=== PATIENT | male | born 1940 | race Caucasian/White ===

== ENCOUNTER 2022-11-28 13:00 | Outpatient (RCR) | payer MEDICARE, OTHER, SELFPAY ==
[2022-11-07 08:22] VITALS: BP 117/75; PULSE 89; RESP 18; TEMP 35.7; BMI 33.9
--- NOTE | 2022-11-07 10:34 | PCM.WC.HP ---
History of Present Illness Date of Service: 11/07/22 Chief Complaint: Traumatic wounds of the right lower extremity History of Wound: This is an 82-year-old male who was in his normal state of health until October 13, 2022. At that time, he tripped on a step stool, experiencing a fall. As result of his fall, the patient sought medical attention in the emergency department at an [facility]. He was diagnosed with a hairline left radial wrist fracture, and was placed in a volar splint. He was found to have an open wound of the right pretibial area, and a large laceration on the right lateral calf. Laceration on the right lateral calf was sutured closed with 9 sutures. Sutures removed on October 26, 2022, following which the laceration dehisced. The patient presented with an open wound on the right pretibial surface and on the right lateral calf. It is noted that the patient has been treated with a course of oral doxycycline. He has been using Bactroban topically to each of the wounds. He suffers from chronic swelling and edema in his lower extremities. He has profound hyperpigmentation and lipodermatosclerosis in the gaiter areas bilaterally. He sleeps in a chair, and is not very active. He spends a great deal of each day idle and sitting. FORMERLY [facility], [facility] Medical History Atrial fibrillation Edema of both legs Fracture of left wrist History of prostate cancer Hyperlipidemia Hyperpigmentation Hypertension Laceration of right leg excluding thigh Leg wound, right Lipodermatosclerosis of both lower extremities Obesity (BMI 30.0-34.9) Swelling of both lower extremities Wound dehiscence Home Medications atorvastatin 40 mg tablet 40 mg PO DAILY 11/07/22 [History Last Taken Unknown] cholecalciferol (vitamin D3) 10 mcg (400 unit) capsule (Vitamin D3) 20 mcg PO DAILY 11/07/22 [History Last Taken Unknown] etodolac 400 mg tablet 400 mg PO Q8H PRN Inflammation 11/07/22 [History Last Taken Unknown] furosemide 40 mg tablet 40 mg PO DAILY 11/07/22 [History Last Taken Unknown] leucovorin calcium 15 mg tablet 15 mg PO QWEEK 11/07/22 [History Last Taken Unknown] metoprolol succinate 50 mg tablet,extended release 24 hr (Toprol XL) 75 mg PO DAILY 11/07/22 [History Last Taken Unknown] prednisone 10 mg tablet 10 mg PO PRN PRN poison shavon 11/07/22 [History Last Taken Unknown] triamcinolone 0.1 % topical ointment and dimethicone 5 % topical cream 0.1 ea topical 11/07/22 [History Last Taken Unknown] warfarin 7.5 mg tablet 7.5 mg PO DAILY 11/07/22 [History Last Taken Unknown] Allergy/AdvReac Type Severity Reaction Status Date / Time Sulfa (Sulfonamide Allergy Swelling Verified 11/07/22 08:47 Antibiotics) Social History Smoking Status: Never smoker Vital Signs Vital Signs Vital Signs: 11/07/22 08:22 Temperature 96.2 F L Temperature Source Temporal Pulse Rate 89 Respiratory Rate 18 Blood Pressure 117/75 Blood Pressure Mean 89 Blood Pressure Source Monitor Blood Pressure Position Sitting Blood Pressure Location Right Arm Oxygen Delivery Method Room Air Weight Weight: 250 lb Body Mass Index (BMI) 33.9 Physical Exam Const alert, oriented x3, no apparent distress and well nourished Constitutional Narrative: The patient is mildly obese. General Appearance: cooperative, comfortable, well kempt and well developed Orientation / Consciousness: awake, oriented to person, oriented to place and oriented to time HEENT normocephalic and head/scalp atraumatic Head and Scalp: normal to inspection, normocephalic and atraumatic Face and Sinus: normal facial exam External Ear: external ears normal Eyes PERRL and EOMs intact bilaterally General Eye: normal appearance of both eyes Neck full ROM Resp normal respiratory effort, normal air movement, no retractions and no use of accessory muscles Effort and Inspection: able to speak in complete sentences Extremity no calf tenderness General Extremity: Negative for clubbing or cyanosis Skin Wound Narrative: Moderate swelling and edema are noted in the patient's lower extremities bilaterally. Severe, pronounced lipodermatosclerosis is noted bilaterally in the gaiter areas. An open wound is noted on the right pretibial area. A dehiscent laceration is noted on the right lateral calf. At each site, there is a moderate amount of bioburden and nonviable tissue. There is no obvious sign of infection or cellulitis. Dimensions of each wound are noted elsewhere. Neuro oriented x3, CN's II-XII intact bilaterally, moves all extremities and no focal motor deficits Sensorium / Orientation: awake, alert, oriented to person, oriented to place and oriented to time Psych Appearance: grossly normal and appropriate Attitude: calm Activity / Motor Behavior: appropriate eye contact Speech: normal speech Mood & Affect: euthymic mood Thought Process: normal thought process Thought Content: normal thought content Attention / Concentration: attention grossly intact Debridement Note Debridement Note Wound debrided: Pretibial area, right lower extremity Laterality: Right Type of Debridement: Excisional debridement Anesthesia Used: 5% Lidocaine Gel Depth: Down to and including healthy tissue and in the subcutaneous layer Percentage of wound debrided: 100 Instrument Used: 5mm curette Tissue Removed: Bioburden and nonviable tissue Severity: Fat Layer Exposed Amount of bleeding with debridement: Mild Bleeding Controlled with: Compression and gauze Patient tolerated procedure: Patient tolerated procedure well Post-Debridement Measurements and Additional Note: Post-Debridement Measurements/Treatment - Nurse 1 - General Ulcer Assessment Start: 11/07/22 08:21 Freq: Status: Active Protocol: NAS Activity Type Activity Date Activity User E-sign Co-sign Detail Recorded Client Recorded Date Recorded By Document 11/07/22 08:22 MW [id number] 11/07/22 08:30 MW 11/07/22 08:22 - Today's Visit Information Type of service Initial Visit Arrival Mode Ambulatory Transfer Assistance None Accompanied by Patient Identification Verified (Name & Yes ) Patient Requires Transmission-Based No Precautions Safety Precautions NA Height and Weight Height 6 ft Weight 250 lb Weight in Pounds 250.0 lbs Body Mass Index (BMI) 33.9 BMI Classification Obese BSA - Woo 2.34 Vital Signs Temperature (97.8 F-99.1 F) 96.2 F L Temperature Source Temporal Pulse Rate (60-100) 89 Pulse Location Monitor Respiratory Rate (12-18) 18 Respiratory rate source Observation Oxygen Delivery Method Room Air Blood Pressure (90/60-120/80) 117/75 Blood Pressure Mean 89 Source Monitor Position Sitting Blood Pressure Location Right Arm History Since Last Visit- (Skip if this is Patient's initial visit) Left Footwear Regular Shoe Right Footwear Regular Shoe Pain Scale: 0-10 Numeric Is Patient Pain Free? Yes Lower Extremity Assessment/ Foot Assessment/ Toe Nail Assessment Right -Posterior Tibial Palpable No -Posterior Tibial Doppler Monophasic -Dorsalis Pedis Palpable Yes -Dorsalis Pedis Doppler Monophasic -Extremity Color Hemosiderin -Hair Growth on Legs No -Hair Growth on Toes No -Temperature of Extremity Warm -Capillary Refill Less than 3 Seconds -Dependent Rubor No -Blanched when Elevated No -Lipodermatosclerosis No -Other Deformity No -Prior Foot Ulcer No -Charcot Joint No -Prior Amputation No -Thick No -Discolored No -Deformed No -Improper Length & Hygeine Yes Left -Polpliteal Pulses Palpable No -Posterior Tibial Palpable No -Posterior Tibial Doppler Monophasic -Dorsalis Pedis Palpable Yes -Dorsalis Pedis Doppler Monophasic -Extremity Color Hemosiderin -Hair Growth on Legs No -Hair Growth on Toes No -Temperature of Extremity Warm -Capillary Refill Less than 3 Seconds -Dependent Rubor No -Blanched when Elevated No -Lipodermatosclerosis No -Other Deformity No -Prior Foot Ulcer No -Charcot Joint No -Prior Amputation No -Thick No -Discolored No -Deformed No -Improper Length & Hygeine Yes Neuropathy Assessment Feet - Top Side and Bottom <Entered> (a) Communication Assessment Preferred language French 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 Able to Read Yes Able to Write Yes Communication Tools None Caregiver Communication Skills No Impairment Impairment Right Hearing Abillity Normal Left Hearing Abillity Normal Visual Assistive Devices Glasses Teaching Assessment Preferences Verbal,Written, Audio/Visual, Demonstration Barriers to Learning None Readiness To Learn Excellent Willingness to Engage in Self Management High Activies Readiness to Engage in Self Management High Activities Anxiety Level Calm Cooperation Cooperative Perception Coherent Interest in Health Problem Asks Questions Education Importance Acknowledges Need Does Patient Smoke tobacco or other Yes substances Smoking Status Never smoker Is Patient Diabetic No Functional Assessment Recent Decline in Ability to Perform Denies Any Declines Assistive Device With Patient No Culture/Yarsani/Martial Arts Instructor Cultural/Yarsani Needs that may affect No Treatment Plan Would you allow our hospital hat and cap drying room attendant to No meet you for the purpose of spiritual/ emotional support? Martial Arts Instructor to contact place of cheondoism No (a) 1 - + WC - Nurse 1 - General Ulcer Measurement Start: 11/07/22 08:21 Freq: Status: Active Protocol: Activity Type Activity Date Activity User E-sign Co-sign Detail Recorded Client Recorded Date Recorded By Document 11/07/22 08:22 MW [id number] 11/07/22 08:30 MW 11/07/22 08:22 Wound Center Nurse 1 #2 right lateral LE -Combined with other wound No -Current Size (cm) - Length 7.8 -Current Size (cm) - Width 0.7 -Current Size (cm) - Depth 0.2 -Total Square Cm 5.46 -Date of Last Picture (Recall this 11/07/22 field) -Photo Taken Yes -Epithelialization None Present -Tunneling No -Undermining/Tunneling No -Circular Undermining No -Exudate Amt Medium -Exudate Type Serosanguineous -Wound Margin Flat & Intact -Granulation Amt None Present (0 %) -Granulation Quality N/A -Slough/Fibrin Yes -Necrosis Amt Large (67-100%) -Necrotic Tissue Type Adherent Slough -Structure Exposed N/A -Texture (Yelena-wound Skin Appearance) Assessed, Localized Edema -Moisture (Yelena-wound Skin Appearance) No Abnormality, Assessed -Color (Yelena-wound Skin Appearance) Assessed, Hemosiderin Staining -Temperature (Yelena-wound Skin No Abnormality Appearance) (Pt Warm) -Tenderness on Palpation (Yelena-wound No Skin Appearance) -Ulcer Cleansing Rinsed/ Irrigated with Saline -Foul Odor after Cleansing No -Anesthetic Used 5% Lidocaine Gel #1 right wheeler -Combined with other wound No -Current Size (cm) - Length 2.8 -Current Size (cm) - Width 0.9 -Current Size (cm) - Depth 0.2 -Total Square Cm 2.52 -Date of Last Picture (Recall this 11/07/22 field) -Photo Taken Yes -Epithelialization None Present -Tunneling No -Undermining/Tunneling No -Circular Undermining No -Exudate Amt Medium -Exudate Type Serosanguineous -Wound Margin Flat & Intact -Granulation Amt Small (1-33%) -Granulation Quality [place] -Slough/Fibrin Yes -Necrosis Amt Large (67-100%) -Necrotic Tissue Type Adherent Slough -Structure Exposed N/A -Texture (Yelean-wound Skin Appearance) Assessed, Localized Edema -Moisture (Yelena-wound Skin Appearance) No Abnormality, Assessed -Color (Yelena-wound Skin Appearance) Assessed, Hemosiderin Staining -Temperature (Yelena-wound Skin No Abnormality Appearance) (Pt Warm) -Tenderness on Palpation (Yelena-wound No Skin Appearance) -Ulcer Cleansing Rinsed/ Irrigated with Saline -Foul Odor after Cleansing No -Anesthetic Used 5% Lidocaine Gel Lower Limb Edema Present Yes Right Calf (cm) 50.2 Right Ankle (cm) 29.2 Left Calf (cm) 44.7 Left Ankle (cm) 28.1 WC - Nurse 3 - General Ulcer D/C NN Start: 11/07/22 08:21 Freq: Status: Active Protocol: Activity Type Activity Date Activity User E-sign Co-sign Detail Recorded Client Recorded Date Recorded By Document 11/07/22 09:22 MW [id number] 11/07/22 09:24 MW 11/07/22 09:22 Wound Care Center Nurse 3 #2 right lateral LE -Ulcer Cleansing Rinsed/ Irrigated with Saline -Foul Odor after Cleansing No -Negative Pressure Wound Therapy N/A -Other Dressing hydrogel -Primary Dressing Covered/Secured with Dry Gauze & Roll Gauze, Secured with Tape -Other Covering ABD #1 right wheeler -Ulcer Cleansing Rinsed/ Irrigated with Saline -Foul Odor after Cleansing No -Negative Pressure Wound Therapy N/A -Other Dressing hydrogel -Primary Dressing Covered/Secured with Dry Gauze & Roll Gauze, Secured with Tape -Other Covering ABD Right -Lotion applied to leg before No compression wrap -Tubular Bandage Single Layer -Size of Tubigrip Used Size E -Size E ($) 2 -Stockings Yes Left -Lotion applied to leg before No compression wrap -Tubular Bandage Single Layer -Size of Tubigrip Used Size E -Size E ($) 2 Pain Scale: 0-10 Numeric Is Patient Pain Free? Yes Teaching: Wound Center Compression Wraps & Stockings -Person Taught Patient,Family -Teaching Method Discussion, Demonstration -Response to teaching Verbalize understanding Dressing Your Wound -Person Taught Patient,Family -Teaching Method Discussion, Demonstration -Response to teaching Verbalize understanding WC - Visit Discharge Discharge Condition Stable Ambulatory Status Ambulatory Transportation Private Auto Accompanied by Medication Reconcilliation completed & No provided to patient/care provider Clinical Summary of Care Provided Yes Additional Wound Wound debrided: Right lateral calf, dehiscent laceration Laterality: Right Type of Debridement: Excisional debridement Anesthesia Used: 5% Lidocaine Gel Depth: Down to and including healthy tissue and in the subcutaneous layer Percentage of wound debrided: 100 Instrument Used: 5mm curette Tissue Removed: Bioburden and nonviable tissue Severity: Fat Layer Exposed Amount of bleeding with debridement: Mild Bleeding Controlled with: Compression and gauze Patient tolerated procedure: Patient tolerated procedure well Assessment/Plan Assessment/Plan (1) Leg wound, right: CODE(S): S81.801A - Unspecified open wound, right lower leg, initial encounter QUALIFIERS: Encounter type: initial encounter Qualified Code(s): S81.801A - Unspecified open wound, right lower leg, initial encounter (2) Laceration of right leg excluding thigh: CODE(S): S81.811A - Laceration without foreign body, right lower leg, initial encounter QUALIFIERS: Encounter type: initial encounter Qualified Code(s): S81.811A - Laceration without foreign body, right lower leg, initial encounter (3) Wound dehiscence: CODE(S): T81.30XA - Disruption of wound, unspecified, initial encounter (4) History of prostate cancer: CODE(S): Z85.46 - Personal history of malignant neoplasm of prostate (5) Hypertension: CODE(S): I10 - Essential (primary) hypertension (6) Hyperlipidemia: CODE(S): E78.5 - Hyperlipidemia, unspecified (7) Atrial fibrillation: CODE(S): I48.91 - Unspecified atrial fibrillation (8) Hyperpigmentation: CODE(S): L81.9 - Disorder of pigmentation, unspecified (9) Lipodermatosclerosis of both lower extremities: CODE(S): I83.11 - Varicose veins of right lower extremity with inflammation; I83.12 - Varicose veins of left lower extremity with inflammation (10) Swelling of both lower extremities: CODE(S): M79.89 - Other specified soft tissue disorders (11) Edema of both legs: CODE(S): R60.0 - Localized edema (12) Obesity (BMI 30.0-34.9): CODE(S): E66.9 - Obesity, unspecified (13) Fracture of left wrist: CODE(S): S62.102A - Fracture of unspecified carpal bone, left wrist, initial encounter for closed fracture PLAN: Plan This is an 82-year-old male who presents with traumatic wounds which occurred on October 13, 2022. He was initially treated in an emergency room setting. Suture closure was performed relative to a laceration on the right lateral calf. Following removal of his sutures, approximately 2 weeks following his injury, the laceration dehisced. The patient presents with 2 wounds in the right lower extremity related to his recent traumatic injury. The patient is seen to have chronic swelling and edema in both lower extremities, with hyperpigmentation and lipodermatosclerosis in the gaiter areas bilaterally. He is not very active, and sleeps in a chair at night. A lengthy discussion has been undertaken with the patient and his . Leg elevation has been encouraged, and a lengthy discussion has been undertaken as to the means by which this can be accomplished. The patient is to elevate his legs to heart level, or higher, is much as possible. He has been encouraged to sleep on a flat surface at night. He has been encouraged to elevate his lower extremities is much as possible during daytime hours. Prolonged idle sitting has been discouraged. Activity has been encouraged, though the degree to which the patient can enhance his activity is question. Weight loss has been recommended. We are to implement compression to the lower extremities initially by means of Tubigrip's, equivalent to 20 to 30 mmHg compression. The patient's is to assist him in donning the compression garments. They have had difficulty in the past in donning graduated compression stockings. Long-term management may entail the use of CircAid Velcro compression garments. Optimizing the patient's nutritional intake has been encouraged. We are to implement the use of collagenase Santyl topically, which will be applied by the patient or his on a daily basis. The means by which this is to be applied have been demonstrated. A prescription and coupon for collagenase Santyl has been provided. A noninvasive lower extremity arterial study is to be obtained to assess the patient's lower extremity arterial status. The patient is to return in 1 week for reassessment. Long-term control of the patient's lower extremity swelling, edema, and lipodermatosclerosis has been emphasized. Total time: 55 minutes
--- NOTE | 2022-11-07 10:51 | ART_ITS ---
Reason For Study: RLE Wound Procedure A bilateral lower extremity continuous wave Doppler with analog waveform analysis,segmental pressures,and ankle brachial indexes without exercise. Left Segmental Pressures Left brachial= 113mmHg. Left posterior tibial artery = 139mmHg. Left dorsalis pedis artery = 136mmHg. Left digit = 112 mmHg. The left posterior tibial artery waveforms are triphasic. The left dorsalis pedis waveforms are triphasic. Right Segmental Pressures Right brachial= 121mmHg. Right posterior tibial artery = 129mmHg. Right dorsalis pedis artery = 124mmHg. Right digit = 92 mmHg. The right posterior tibial artery waveforms are triphasic. The right dorsalis pedis waveforms are triphasic. Indices The right ankle brachial index by the posterior tibial artery is 1.07. The right ankle brachial index by the dorsalis pedis is 1.02. The right digital-brachial index is 0.76. The left ankle brachial index by the posterior tibial artery is 1.15. The left ankle brachial index by the dorsalis pedis is 1.12. The left digital-brachial index is 0.93. VL/Lower Ext Art Exam w/o Exercis Interpretation Summary Triphasic Doppler waveforms are noted at ankle level bilaterally. Pulse-volume recordings appear satisfactory at all levels bilaterally. Resting ankle-brachial indices are norm al bilaterally. Digital-brachial indices are normal bilaterally. There is no evidence of significant arterial occlusive disease in the lower ext remities bilaterally. Ordering Physician: Jai Dennis Referring Physician: Lefty Roca Performed By: Gareth Mathew, RVT
[2022-11-14 08:01] VITALS: BP 135/81; PULSE 83; RESP 18; TEMP 35.9; BMI 33.9
--- NOTE | 2022-11-14 08:57 | PCM.WC.HP ---
History of Present Illness Date of Service: 11/14/22 Chief Complaint: Traumatic wounds of the right lower extremity History of Wound: This is an 82-year-old male who was in his normal state of health until October 13, 2022. At that time, he tripped on a step stool, experiencing a fall. As result of his fall, the patient sought medical attention in the emergency department at an [facility]. He was diagnosed with a hairline left radial wrist fracture, and was placed in a volar splint. He was found to have an open wound of the right pretibial area, and a large laceration on the right lateral calf. Laceration on the right lateral calf was sutured closed with 9 sutures. Sutures removed on October 26, 2022, following which the laceration dehisced. The patient presented with an open wound on the right pretibial surface and on the right lateral calf. It is noted that the patient has been treated with a course of oral doxycycline. He has been using Bactroban topically to each of the wounds. He suffers from chronic swelling and edema in his lower extremities. He has profound hyperpigmentation and lipodermatosclerosis in the gaiter areas bilaterally. He sleeps in a chair, and is not very active. He spends a great deal of each day idle and sitting. [facility] Medical History Atrial fibrillation Edema of both legs Fracture of left wrist History of prostate cancer Hyperlipidemia Hyperpigmentation Hypertension Laceration of right leg excluding thigh Leg wound, right Lipodermatosclerosis of both lower extremities Obesity (BMI 30.0-34.9) Swelling of both lower extremities Wound dehiscence Home Medications atorvastatin 40 mg tablet 40 mg PO DAILY 11/07/22 [History Last Taken Unknown] cholecalciferol (vitamin D3) 10 mcg (400 unit) capsule (Vitamin D3) 20 mcg PO DAILY 11/07/22 [History Last Taken Unknown] etodolac 400 mg tablet 400 mg PO Q8H PRN Inflammation 11/07/22 [History Last Taken Unknown] furosemide 40 mg tablet 40 mg PO DAILY 11/07/22 [History Last Taken Unknown] leucovorin calcium 15 mg tablet 15 mg PO QWEEK 11/07/22 [History Last Taken Unknown] metoprolol succinate 50 mg tablet,extended release 24 hr (Toprol XL) 75 mg PO DAILY 11/07/22 [History Last Taken Unknown] prednisone 10 mg tablet 10 mg PO PRN PRN poison shavon 11/07/22 [History Last Taken Unknown] triamcinolone 0.1 % topical ointment and dimethicone 5 % topical cream 0.1 ea topical 11/07/22 [History Last Taken Unknown] warfarin 7.5 mg tablet 7.5 mg PO DAILY 11/07/22 [History Last Taken Unknown] Allergy/AdvReac Type Severity Reaction Status Date / Time Sulfa (Sulfonamide Allergy Swelling Verified 11/07/22 08:47 Antibiotics) Social History Smoking Status: Never smoker Vital Signs Vital Signs Vital Signs: 11/14/22 08:01 Temperature 96.7 F L Temperature Source Temporal Pulse Rate 83 Respiratory Rate 18 Blood Pressure 135/81 H Blood Pressure Mean 99 Blood Pressure Source Monitor Blood Pressure Position Sitting Blood Pressure Location Right Arm Oxygen Delivery Method Room Air Weight Weight: 250 lb Body Mass Index (BMI) 33.9 Physical Exam Const alert, oriented x3, no apparent distress and well nourished Constitutional Narrative: The patient is mildly obese. General Appearance: cooperative, comfortable, well kempt and well developed Orientation / Consciousness: awake, oriented to person, oriented to place and oriented to time HEENT normocephalic and head/scalp atraumatic Head and Scalp: normal to inspection, normocephalic and atraumatic Face and Sinus: normal facial exam External Ear: external ears normal Eyes PERRL and EOMs intact bilaterally General Eye: normal appearance of both eyes Neck full ROM Resp normal respiratory effort, normal air movement, no retractions and no use of accessory muscles Effort and Inspection: able to speak in complete sentences Extremity no calf tenderness General Extremity: Negative for clubbing or cyanosis Skin Wound Narrative: Moderate swelling and edema are noted in the patient's lower extremities bilaterally. Severe, pronounced lipodermatosclerosis is noted bilaterally in the gaiter areas. An open wound is noted on the right pretibial area. A dehiscent laceration is noted on the right lateral calf. At each site, there is a moderate amount of bioburden and nonviable tissue. There is no obvious sign of infection or cellulitis. Dimensions of each wound are noted elsewhere. There has been little change noted within the last week, though the degree of swelling and edema is somewhat less.. Neuro oriented x3, CN's II-XII intact bilaterally, moves all extremities and no focal motor deficits Sensorium / Orientation: awake, alert, oriented to person, oriented to place and oriented to time Psych Appearance: grossly normal and appropriate Attitude: calm Activity / Motor Behavior: appropriate eye contact Speech: normal speech Mood & Affect: euthymic mood Thought Process: normal thought process Thought Content: normal thought content Attention / Concentration: attention grossly intact Debridement Note Debridement Note Wound debrided: Pretibial area, right lower extremity Laterality: Right Type of Debridement: Excisional debridement Anesthesia Used: 5% Lidocaine Gel Depth: Down to and including healthy tissue and in the subcutaneous layer Percentage of wound debrided: 100 Instrument Used: 5mm curette Tissue Removed: Bioburden and nonviable tissue Severity: Fat Layer Exposed Amount of bleeding with debridement: Mild Bleeding Controlled with: Compression and gauze Patient tolerated procedure: Patient tolerated procedure well Post-Debridement Measurements and Additional Note: Post-Debridement Measurements/Treatment - Nurse 1 - General Ulcer Assessment Start: 11/07/22 08:21 Freq: Status: Active Protocol: NSA Activity Type Activity Date Activity User E-sign Co-sign Detail Recorded Client Recorded Date Recorded By Document 11/07/22 08:22 MW [id number] 11/07/22 08:30 MW Document 11/14/22 08:01 MW [id number] 11/14/22 08:05 MW 11/07/22 11/14/22 08:22 08:01 - Today's Visit Information Type of service Initial Visit Follow-up Visit (Physician/RETAIL ASSISTANT ) Arrival Mode Ambulatory Ambulatory Transfer Assistance None None Accompanied by Patient Identification Verified (Name & Yes Yes ) Patient Requires Transmission-Based No No Precautions Safety Precautions NA NA Height and Weight Height 6 ft Weight 250 lb Weight in Pounds 250.0 lbs Body Mass Index (BMI) 33.9 33.9 BMI Classification Obese Obese BSA - Woo 2.34 Vital Signs Temperature (97.8 F-99.1 F) 96.2 F L 96.7 F L Temperature Source Temporal Temporal Pulse Rate (60-100) 89 83 Pulse Location Monitor Monitor Respiratory Rate (12-18) 18 18 Respiratory rate source Observation Observation Oxygen Delivery Method Room Air Room Air Blood Pressure (90/60-120/80) 117/75 135/81 H Blood Pressure Mean 89 99 Source Monitor Monitor Position Sitting Sitting Blood Pressure Location Right Arm Right Arm History Since Last Visit- (Skip if this is Patient's initial visit) Have you changed medications since your No last visit? Any new allergies or adverse reactions No Had a fall/change in ADL's that may No increase risk of falls Signs or symptoms of abuse and/or No neglect since last visit Have you been in the hospital since your No last visit? Left Footwear Regular Shoe Regular Shoe Right Footwear Regular Shoe Regular Shoe Pain Scale: 0-10 Numeric Is Patient Pain Free? Yes Yes Lower Extremity Assessment/ Foot Assessment/ Toe Nail Assessment Right -Posterior Tibial Palpable No -Posterior Tibial Doppler Monophasic -Dorsalis Pedis Palpable Yes -Dorsalis Pedis Doppler Monophasic -Extremity Color Hemosiderin -Hair Growth on Legs No -Hair Growth on Toes No -Temperature of Extremity Warm -Capillary Refill Less than 3 Seconds -Dependent Rubor No -Blanched when Elevated No -Lipodermatosclerosis No -Other Deformity No -Prior Foot Ulcer No -Charcot Joint No -Prior Amputation No -Thick No -Discolored No -Deformed No -Improper Length & Hygeine Yes Left -Polpliteal Pulses Palpable No -Posterior Tibial Palpable No -Posterior Tibial Doppler Monophasic -Dorsalis Pedis Palpable Yes -Dorsalis Pedis Doppler Monophasic -Extremity Color Hemosiderin -Hair Growth on Legs No -Hair Growth on Toes No -Temperature of Extremity Warm -Capillary Refill Less than 3 Seconds -Dependent Rubor No -Blanched when Elevated No -Lipodermatosclerosis No -Other Deformity No -Prior Foot Ulcer No -Charcot Joint No -Prior Amputation No -Thick No -Discolored No -Deformed No -Improper Length & Hygeine Yes Neuropathy Assessment Feet - Top Side and Bottom <Entered> (a) Communication Assessment Preferred language [place] [employer] Assistant Required No Able to Read Yes Able to Write Yes Communication Tools None Caregiver Communication Skills No Impairment Impairment Right Hearing Abillity Normal Left Hearing Abillity Normal Visual Assistive Devices Glasses Teaching Assessment Preferences Verbal,Written, Audio/Visual, Demonstration Barriers to Learning None Readiness To Learn Excellent Willingness to Engage in Self Management High Activies Readiness to Engage in Self Management High Activities Anxiety Level Calm Cooperation Cooperative Perception Coherent Interest in Health Problem Asks Questions Education Importance Acknowledges Need Does Patient Smoke tobacco or other Yes substances Smoking Status Never smoker Is Patient Diabetic No Functional Assessment Recent Decline in Ability to Perform Denies Any Declines Assistive Device With Patient No Culture/Sikhism/[employer] Cultural/Sikhism Needs that may affect No Treatment Plan Would you allow our hospital seasonal greenery bundler to No meet you for the purpose of spiritual/ emotional support? [employer] to contact place of faith No (a) 1 - + WC - Nurse 1 - General Ulcer Measurement Start: 11/07/22 08:21 Freq: Status: Active Protocol: Activity Type Activity Date Activity User E-sign Co-sign Detail Recorded Client Recorded Date Recorded By Document 11/07/22 08:22 MW [id number] 11/07/22 08:30 MW Document 11/14/22 08:01 MW [id number] 11/14/22 08:05 MW 11/07/22 11/14/22 08:22 08:01 Wound Center Nurse 1 #2 right lateral LE -Combined with other wound No No -Current Size (cm) - Length 7.8 8.3 -Current Size (cm) - Width 0.7 0.5 -Current Size (cm) - Depth 0.2 0.2 -Total Square Cm 5.46 4.15 -Date of Last Picture (Recall this 11/07/22 field) -Photo Taken Yes No -Epithelialization None Present Small 1-33% -Tunneling No No -Undermining/Tunneling No No -Circular Undermining No No -Exudate Amt Medium Small -Exudate Type Serosanguineous Serosanguineous -Wound Margin Flat & Intact Flat & Intact -Granulation Amt None Present (0 Small (1-33%) %) -Granulation Quality N/A [place] -Slough/Fibrin Yes Yes -Necrosis Amt Large (67-100%) Large (67-100%) -Necrotic Tissue Type Adherent Slough Adherent Slough -Structure Exposed N/A -Texture (Yelena-wound Skin Appearance) Assessed, Assessed, Localized Edema Localized Edema ,Scarring -Moisture (Yelena-wound Skin Appearance) No Abnormality, No Abnormality, Assessed Assessed -Color (Yelena-wound Skin Appearance) Assessed, Assessed, Hemosiderin Hemosiderin Staining Staining -Temperature (Yelena-wound Skin No Abnormality No Abnormality Appearance) (Pt Warm) (Pt Warm) -Tenderness on Palpation (Yelena-wound No No Skin Appearance) -Ulcer Cleansing Rinsed/ Rinsed/ Irrigated with Irrigated with Saline Saline -Foul Odor after Cleansing No No -Anesthetic Used 5% Lidocaine 5% Lidocaine Gel Gel #1 right wheeler -Combined with other wound No No -Current Size (cm) - Length 2.8 2.5 -Current Size (cm) - Width 0.9 0.7 -Current Size (cm) - Depth 0.2 0.1 -Total Square Cm 2.52 1.75 -Date of Last Picture (Recall this 11/07/22 field) -Photo Taken Yes No -Epithelialization None Present None Present -Tunneling No No -Undermining/Tunneling No No -Circular Undermining No No -Exudate Amt Medium Small -Exudate Type Serosanguineous Serosanguineous -Wound Margin Flat & Intact Flat & Intact -Granulation Amt Small (1-33%) Small (1-33%) -Granulation Quality [place] -Slough/Fibrin Yes Yes -Necrosis Amt Large (67-100%) Large (67-100%) -Necrotic Tissue Type Adherent Slough Adherent Slough -Structure Exposed N/A N/A -Texture (Yelena-wound Skin Appearance) Assessed, Assessed, Localized Edema Localized Edema ,Scarring -Moisture (Yelena-wound Skin Appearance) No Abnormality, Assessed Assessed -Color (Yelena-wound Skin Appearance) Assessed, Assessed, Hemosiderin Hemosiderin Staining Staining -Temperature (Yelena-wound Skin No Abnormality No Abnormality Appearance) (Pt Warm) (Pt Warm) -Tenderness on Palpation (Yelena-wound No No Skin Appearance) -Ulcer Cleansing Rinsed/ Rinsed/ Irrigated with Irrigated with Saline Saline -Foul Odor after Cleansing No No -Anesthetic Used 5% Lidocaine 5% Lidocaine Gel Gel Lower Limb Edema Present Yes Yes Right Calf (cm) 50.2 48.0 Right Ankle (cm) 29.2 28.5 Left Calf (cm) 44.7 Left Ankle (cm) 28.1 WC - Nurse 2 - General Ulcer CM Notes Start: 11/07/22 08:21 Freq: Status: Active Protocol: Activity Type Activity Date Activity User E-sign Co-sign Detail Recorded Client Recorded Date Recorded By Document 11/07/22 11:58 PL [id number] 11/07/22 12:00 PL 11/07/22 11:58 Wound Center Nurse 2 #2 right lateral LE -Time 08:46 -Correct Patient Yes -Correct Side, Site, Position Yes -Correct Procedure Yes -Procedure Performed Yes -Type of Procedure Debridement -Clinical Debridement Subcutaneous -Tissue Removed Subcutaneous -Post Debridement (cm) - Length 7.8 -Post Debridement (cm) - Width 0.7 -Post Debridement (cm) - Depth 0.2 -Total Square (Post) (cm) 5.46 -Area of Debridement (cm) - Length 7.8 -Area of Debridement (cm) - Width 0.7 -Total Square (Area) (cm) 5.46 -Tunneling No -Undermining/Tunneling No -Circular Undermining No -Wound/Ulcer Outcome Not Healed -Ulcer Cleansing Rinsed/ Irrigated with Saline -Foul Odor after Cleansing No -Bioengineered Tissue No -Bleeding Controlled with NA -Treatment Response Procedure Tolerated Well -Debridement - Subq, 1st 20sq cm No #1 right wheeler -Time 08:46 -Correct Patient Yes -Correct Side, Site, Position Yes -Correct Procedure Yes -Procedure Performed Yes -Type of Procedure Debridement -Clinical Debridement Subcutaneous -Tissue Removed Subcutaneous -Post Debridement (cm) - Length 2.8 -Post Debridement (cm) - Width 0.9 -Post Debridement (cm) - Depth 0.2 -Total Square (Post) (cm) 2.52 -Area of Debridement (cm) - Length 2.8 -Area of Debridement (cm) - Width 0.9 -Total Square (Area) (cm) 2.52 -Tunneling No -Undermining/Tunneling No -Circular Undermining No -Wound/Ulcer Outcome Not Healed -Ulcer Cleansing Rinsed/ Irrigated with Saline -Foul Odor after Cleansing No -Bioengineered Tissue No -Bleeding Controlled with Pressure -Treatment Response Procedure Tolerated Well -Debridement - Subq, 1st 20sq cm Yes Pain Scale: 0-10 Numeric Is Patient Pain Free? Yes WC - Nurse 3 - General Ulcer D/C NN Start: 11/07/22 08:21 Freq: Status: Active Protocol: Activity Type Activity Date Activity User E-sign Co-sign Detail Recorded Client Recorded Date Recorded By Document 11/07/22 09:22 MW [id number] 11/07/22 09:24 MW Document 11/14/22 08:43 MW [id number] 11/14/22 08:45 MW 11/07/22 11/14/22 09:22 08:43 Wound Care Center Nurse 3 #2 right lateral LE -Ulcer Cleansing Rinsed/ Rinsed/ Irrigated with Irrigated with Saline Saline -Foul Odor after Cleansing No -Negative Pressure Wound Therapy N/A -Primary Dressing Applied Hysept ($) -Other Dressing hydrogel -Primary Dressing Covered/Secured with Dry Gauze & Dry Gauze & Roll Gauze, Roll Gauze, Secured with Secured with Tape Tape -Other Covering ABD abd #1 right wheeler -Ulcer Cleansing Rinsed/ Rinsed/ Irrigated with Irrigated with Saline Saline -Foul Odor after Cleansing No No -Negative Pressure Wound Therapy N/A -Other Dressing hydrogel dakins wet to dry -Primary Dressing Covered/Secured with Dry Gauze & Dry Gauze & Roll Gauze, Roll Gauze, Secured with Secured with Tape Tape -Other Covering ABD Right -Lotion applied to leg before No No compression wrap -Tubular Bandage Single Layer Single Layer -Size of Tubigrip Used Size E Size E -Size E ($) 2 1 -Stockings Yes Left -Lotion applied to leg before No No compression wrap -Tubular Bandage Single Layer Single Layer -Size of Tubigrip Used Size E Size E -Size E ($) 2 1 Treatment Response Procedure Tolerated Well Pain Scale: 0-10 Numeric Is Patient Pain Free? Yes Yes Teaching: Wound Center Compression Wraps & Stockings -Person Taught Patient,Family Patient,Family -Teaching Method Discussion, Discussion Demonstration -Response to teaching Verbalize Verbalize understanding understanding Dressing Your Wound -Person Taught Patient,Family -Teaching Method Discussion, Demonstration -Response to teaching Verbalize understanding WC - Visit Discharge Discharge Condition Stable Stable Ambulatory Status Ambulatory Ambulatory Transportation Private Auto Private Auto Accompanied by Medication Reconcilliation completed & No No provided to patient/care provider Clinical Summary of Care Provided Yes Yes Notes: Dressing applied per George Flores RN Additional Wound Wound debrided: Right lateral calf, dehiscent laceration Laterality: Right Type of Debridement: Excisional debridement Anesthesia Used: 5% Lidocaine Gel Depth: Down to and including healthy tissue and in the subcutaneous layer Percentage of wound debrided: 100 Instrument Used: 5mm curette Tissue Removed: Bioburden and nonviable tissue Severity: Fat Layer Exposed Amount of bleeding with debridement: Mild Bleeding Controlled with: Compression and gauze Patient tolerated procedure: Patient tolerated procedure well Assessment/Plan Assessment/Plan (1) Leg wound, right: CODE(S): S81.801A - Unspecified open wound, right lower leg, initial encounter QUALIFIERS: Encounter type: subsequent encounter Qualified Code(s): S81.801D - Unspecified open wound, right lower leg, subsequent encounter (2) Laceration of right leg excluding thigh: CODE(S): S81.811A - Laceration without foreign body, right lower leg, initial encounter QUALIFIERS: Encounter type: subsequent encounter Qualified Code(s): S81.811D - Laceration without foreign body, right lower leg, subsequent encounter (3) Wound dehiscence: CODE(S): T81.30XA - Disruption of wound, unspecified, initial encounter (4) History of prostate cancer: CODE(S): Z85.46 - Personal history of malignant neoplasm of prostate (5) Hypertension: CODE(S): I10 - Essential (primary) hypertension (6) Hyperlipidemia: CODE(S): E78.5 - Hyperlipidemia, unspecified (7) Atrial fibrillation: CODE(S): I48.91 - Unspecified atrial fibrillation (8) Hyperpigmentation: CODE(S): L81.9 - Disorder of pigmentation, unspecified (9) Lipodermatosclerosis of both lower extremities: CODE(S): I83.11 - Varicose veins of right lower extremity with inflammation; I83.12 - Varicose veins of left lower extremity with inflammation (10) Swelling of both lower extremities: CODE(S): M79.89 - Other specified soft tissue disorders (11) Edema of both legs: CODE(S): R60.0 - Localized edema (12) Obesity (BMI 30.0-34.9): CODE(S): E66.9 - Obesity, unspecified (13) Fracture of left wrist: CODE(S): S62.102A - Fracture of unspecified carpal bone, left wrist, initial encounter for closed fracture PLAN: Plan This is an 82-year-old male who presents with traumatic wounds which occurred on October 13, 2022. He was initially treated in an emergency room setting. Suture closure was performed relative to a laceration on the right lateral calf. Following removal of his sutures, approximately 2 weeks following his injury, the laceration dehisced. The patient presented with 2 wounds in the right lower extremity related to his recent traumatic injury. The patient is seen to have chronic swelling and edema in both lower extremities, with hyperpigmentation and lipodermatosclerosis in the gaiter areas bilaterally. He is not very active, and sleeps in a chair at night. A lengthy discussion has been undertaken with the patient and his . Leg elevation has been encouraged, and a lengthy discussion has been undertaken as to the means by which this can be accomplished. The patient is to elevate his legs to heart level, or higher, is much as possible. He has been encouraged to sleep on a flat surface at night. He has been encouraged to elevate his lower extremities is much as possible during daytime hours. Prolonged idle sitting has been discouraged. Activity has been encouraged, though the degree to which the patient can enhance his activity is question. Weight loss has been recommended. We are to implement compression to the lower extremities initially by means of Tubigrip's, equivalent to 20 to 30 mmHg compression. The patient's is to assist him in donning the compression garments. They have had difficulty in the past in donning graduated compression stockings. Long-term management may entail the use of CircAid Velcro compression garments. Optimizing the patient's nutritional intake has been encouraged. Collagenase Santyl was prescribed at the patient's initial visit a week ago, but the patient failed to obtain the product due to its high expense. Even with a coupon, the cost was $300, beyond the patient's ability to purchase. Therefore, the patient and his have been using topical antibiotic ointment. We are to implement the use of Dakin's?moistened gauze. This is to be applied topically on a daily basis. Instructions have been provided to the patient and his as to the appropriate means of application. The means by which this is to be applied have been demonstrated. A noninvasive lower extremity arterial study has been performed, revealing no evidence of significant arterial occlusive disease. The patient is to return in 1 week for reassessment. Long-term control of the patient's lower extremity swelling, edema, and lipodermatosclerosis has been emphasized. Total time: 28 minutes
[2022-11-21 08:28] VITALS: BP 119/79; PULSE 79; RESP 20; TEMP 36.3; BMI 33.9
--- NOTE | 2022-11-21 08:51 | HP.PCM_ITS ---
History of Present Illness Date of Service: 11/21/22 Chief Complaint: Traumatic wounds of the right lower extremity History of Wound: This is an 82-year-old male who was in his normal state of health until October 13, 2022. At that time, he tripped on a step stool, experiencing a fall. As result of his fall, the patient sought medical attention in the emergency department at an [facility]. He was diagnosed with a hairline left radial wrist fracture, and was placed in a volar splint. He was found to have an open wound of the right pretibial area, and a large laceration on the right lateral calf. Laceration on the right lateral calf was sutured closed with 9 sutures. Sutures removed on October 26, 2022, following which the laceration dehisced. The patient presented with an open wound on the right pretibial surface and on the right lateral calf. It is noted that the patient has been treated with a course of oral doxycycline. He has been using Bactroban topically to each of the wounds. He suffers from chronic swelling and edema in his lower extremities. He has profound hyperpigmentation and lipodermatosclerosis in the gaiter areas bilaterally. He sleeps in a chair, and is not very active. He spends a great deal of each day idle and sitting. [facility] Medical History Atrial fibrillation Edema of both legs Fracture of left wrist History of prostate cancer Hyperlipidemia Hyperpigmentation Hypertension Laceration of right leg excluding thigh Leg wound, right Lipodermatosclerosis of both lower extremities Obesity (BMI 30.0-34.9) Swelling of both lower extremities Wound dehiscence Home Medications atorvastatin 40 mg tablet 40 mg PO DAILY 11/07/22 [History Last Taken Unknown] cholecalciferol (vitamin D3) 10 mcg (400 unit) capsule (Vitamin D3) 20 mcg PO DAILY 11/07/22 [History Last Taken Unknown] etodolac 400 mg tablet 400 mg PO Q8H PRN Inflammation 11/07/22 [History Last Taken Unknown] furosemide 40 mg tablet 40 mg PO DAILY 11/07/22 [History Last Taken Unknown] leucovorin calcium 15 mg tablet 15 mg PO QWEEK 11/07/22 [History Last Taken Unknown] metoprolol succinate 50 mg tablet,extended release 24 hr (Toprol XL) 75 mg PO DAILY 11/07/22 [History Last Taken Unknown] prednisone 10 mg tablet 10 mg PO PRN PRN poison shavon 11/07/22 [History Last Taken Unknown] triamcinolone 0.1 % topical ointment and dimethicone 5 % topical cream 0.1 ea topical 11/07/22 [History Last Taken Unknown] warfarin 7.5 mg tablet 7.5 mg PO DAILY 11/07/22 [History Last Taken Unknown] Allergy/AdvReac Type Severity Reaction Status Date / Time Sulfa (Sulfonamide Allergy Swelling Verified 11/07/22 08:47 Antibiotics) Social History Smoking Status: Never smoker Vital Signs Vital Signs Vital Signs: 11/21/22 08:28 Temperature 97.3 F L Temperature Source Temporal Pulse Rate 79 Respiratory Rate 20 H Blood Pressure 119/79 Blood Pressure Mean 92 Blood Pressure Source Monitor Weight Weight: 250 lb Body Mass Index (BMI) 33.9 Physical Exam Const alert, oriented x3, no apparent distress and well nourished Constitutional Narrative: The patient is mildly obese. General Appearance: cooperative, comfortable, well kempt and well developed Orientation / Consciousness: awake, oriented to person, oriented to place and oriented to time HEENT normocephalic and head/scalp atraumatic Head and Scalp: normal to inspection, normocephalic and atraumatic Face and Sinus: normal facial exam External Ear: external ears normal Eyes PERRL and EOMs intact bilaterally General Eye: normal appearance of both eyes Neck full ROM Resp normal respiratory effort, normal air movement, no retractions and no use of accessory muscles Effort and Inspection: able to speak in complete sentences Extremity no calf tenderness General Extremity: Negative for clubbing or cyanosis Skin Wound Narrative: Moderate swelling and edema are noted in the patient's lower extremities bilaterally. Severe, pronounced hyperpigmentation and lipodermatosclerosis is noted bilaterally in the gaiter areas. An open wound is noted on the right pretibial area. A dehiscent laceration is noted on the right lateral calf. At each site, there is a small amount of bioburden and nonviable tissue. There is no obvious sign of infection or cellulitis. Dimensions of each wound are noted elsewhere. The wound and dehiscent laceration appear to be smaller in size as compared to 1 week ago. There is an increase in the amount of pink, healthy granulation tissue at each site. Neuro oriented x3, CN's II-XII intact bilaterally, moves all extremities and no focal motor deficits Sensorium / Orientation: awake, alert, oriented to person, oriented to place and oriented to time Psych Appearance: grossly normal and appropriate Attitude: calm Activity / Motor Behavior: appropriate eye contact Speech: normal speech Mood & Affect: euthymic mood Thought Process: normal thought process Thought Content: normal thought content Attention / Concentration: attention grossly intact Debridement Note Debridement Note Wound debrided: Pretibial area, right lower extremity Laterality: Right Type of Debridement: Excisional debridement Anesthesia Used: 5% Lidocaine Gel Depth: Down to and including healthy tissue and in the subcutaneous layer Percentage of wound debrided: 100 Instrument Used: 5mm curette Tissue Removed: Bioburden and nonviable tissue Severity: Fat Layer Exposed Amount of bleeding with debridement: Mild Bleeding Controlled with: Compression and gauze Patient tolerated procedure: Patient tolerated procedure well Post-Debridement Measurements and Additional Note: Post-Debridement Measurements/Treatment - Nurse 1 - General Ulcer Assessment Start: 11/07/22 08:21 Freq: Status: Active Protocol: DELORES.ALBERTO Activity Type Activity Date Activity User E-sign Co-sign Detail Recorded Client Recorded Date Recorded By Document 11/07/22 08:22 MW [id number] 11/07/22 08:30 MW Document 11/14/22 08:01 MW [id number] 11/14/22 08:05 MW Document 11/21/22 08:28 DL [id number] 11/21/22 08:35 DL 11/07/22 11/14/22 11/21/22 08:22 08:01 08:28 - Today's Visit Information Type of service Initial Visit Follow-up Visit Follow-up Visit (Physician/CHIEF HOSPITAL ADMINISTRATOR (Physician/CHIEF HOSPITAL ADMINISTRATOR ) ) Arrival Mode Ambulatory Ambulatory Ambulatory Transfer Assistance None None None Accompanied by Patient Identification Verified (Name & Yes Yes Yes ) Patient Requires Transmission-Based No No No Precautions Safety Precautions NA NA Height and Weight Height 6 ft Weight 250 lb Weight in Pounds 250.0 lbs Body Mass Index (BMI) 33.9 33.9 33.9 BMI Classification Obese Obese Obese BSA - Woo 2.34 Vital Signs Temperature (97.8 F-99.1 F) 96.2 F L 96.7 F L 97.3 F L Temperature Source Temporal Temporal Temporal Pulse Rate (60-100) 89 83 79 Pulse Location Monitor Monitor Monitor Respiratory Rate (12-18) 18 18 20 H Respiratory rate source Observation Observation Oxygen Delivery Method Room Air Room Air Blood Pressure (90/60-120/80) 117/75 135/81 H 119/79 Blood Pressure Mean 89 99 92 Source Monitor Monitor Monitor Position Sitting Sitting Blood Pressure Location Right Arm Right Arm History Since Last Visit- (Skip if this is Patient's initial visit) Have you changed medications since your No No last visit? Any new allergies or adverse reactions No No Had a fall/change in ADL's that may No No increase risk of falls Signs or symptoms of abuse and/or No No neglect since last visit Have you been in the hospital since your No last visit? Has dressing in place as prescribed Yes Has compression in place as prescribed Yes Has offloadiing in place as prescribed N/A Experienced any changes in pain level or No management Left Footwear Regular Shoe Regular Shoe Right Footwear Regular Shoe Regular Shoe Pain Scale: 0-10 Numeric Is Patient Pain Free? Yes Yes Yes Lower Extremity Assessment/ Foot Assessment/ Toe Nail Assessment Right -Posterior Tibial Palpable No -Posterior Tibial Doppler Monophasic -Dorsalis Pedis Palpable Yes -Dorsalis Pedis Doppler Monophasic -Extremity Color Hemosiderin -Hair Growth on Legs No -Hair Growth on Toes No -Temperature of Extremity Warm -Capillary Refill Less than 3 Seconds -Dependent Rubor No -Blanched when Elevated No -Lipodermatosclerosis No -Other Deformity No -Prior Foot Ulcer No -Charcot Joint No -Prior Amputation No -Thick No -Discolored No -Deformed No -Improper Length & Hygeine Yes Left -Polpliteal Pulses Palpable No -Posterior Tibial Palpable No -Posterior Tibial Doppler Monophasic -Dorsalis Pedis Palpable Yes -Dorsalis Pedis Doppler Monophasic -Extremity Color Hemosiderin -Hair Growth on Legs No -Hair Growth on Toes No -Temperature of Extremity Warm -Capillary Refill Less than 3 Seconds -Dependent Rubor No -Blanched when Elevated No -Lipodermatosclerosis No -Other Deformity No -Prior Foot Ulcer No -Charcot Joint No -Prior Amputation No -Thick No -Discolored No -Deformed No -Improper Length & Hygeine Yes Neuropathy Assessment Feet - Top Side and Bottom <Entered> (a) Communication Assessment Preferred language Welsh Senior Net Software Engineer Required No Able to Read Yes Able to Write Yes Communication Tools None Caregiver Communication Skills No Impairment Impairment Right Hearing Abillity Normal Left Hearing Abillity Normal Visual Assistive Devices Glasses Teaching Assessment Preferences Verbal,Written, Audio/Visual, Demonstration Barriers to Learning None Readiness To Learn Excellent Willingness to Engage in Self Management High Activies Readiness to Engage in Self Management High Activities Anxiety Level Calm Cooperation Cooperative Perception Coherent Interest in Health Problem Asks Questions Education Importance Acknowledges Need Does Patient Smoke tobacco or other Yes substances Smoking Status Never smoker Is Patient Diabetic No Functional Assessment Recent Decline in Ability to Perform Denies Any Declines Assistive Device With Patient No Culture/Mormonism/Senior Tax Accountant Cultural/Mormonism Needs that may affect No Treatment Plan Would you allow our [facility] sports team manager to No meet you for the purpose of spiritual/ emotional support? Senior Tax Accountant to contact place of caodaism No (a) 1 - + WC - Nurse 1 - General Ulcer Measurement Start: 11/07/22 08:21 Freq: Status: Active Protocol: Activity Type Activity Date Activity User E-sign Co-sign Detail Recorded Client Recorded Date Recorded By Document 11/07/22 08:22 MW [id number] 11/07/22 08:30 MW Document 11/14/22 08:01 MW [id number] 11/14/22 08:05 MW Document 11/21/22 08:28 DL [id number] 11/21/22 08:35 DL 11/07/22 11/14/22 11/21/22 08:22 08:01 08:28 Wound Center Nurse 1 #2 right lateral LE -Combined with other wound No No -Current Size (cm) - Length 7.8 8.3 7 -Current Size (cm) - Width 0.7 0.5 0.5 -Current Size (cm) - Depth 0.2 0.2 0.3 -Total Square Cm 5.46 4.15 3.5 -Date of Last Picture (Recall this 11/07/22 field) -Photo Taken Yes No Yes -Epithelialization None Present Small 1-33% -Tunneling No No -Undermining/Tunneling No No -Circular Undermining No No -Exudate Amt Medium Small Small -Exudate Type Serosanguineous Serosanguineous Serosanguineous -Wound Margin Flat & Intact Flat & Intact Distinct, Outline Attached -Granulation Amt None Present (0 Small (1-33%) Large (67-100%) %) -Granulation Quality N/A [place] [address] [place] [address] -Slough/Fibrin Yes Yes -Necrosis Amt Large (67-100%) Large (67-100%) Small (1-33%) -Necrotic Tissue Type Adherent Slough Adherent Slough Adherent Slough -Structure Exposed N/A N/A -Texture (Yelena-wound Skin Appearance) Assessed, Assessed, Scarring Localized Edema Localized Edema ,Scarring -Moisture (Yelena-wound Skin Appearance) No Abnormality, No Abnormality, Dry/Scaly Assessed Assessed -Color (Yelena-wound Skin Appearance) Assessed, Assessed, Hemosiderin Hemosiderin Hemosiderin Staining Staining Staining -Temperature (Yelena-wound Skin No Abnormality No Abnormality No Abnormality Appearance) (Pt Warm) (Pt Warm) (Pt Warm) -Tenderness on Palpation (Yelena-wound No No Skin Appearance) -Ulcer Cleansing Rinsed/ Rinsed/ Soap and Water Irrigated with Irrigated with Saline Saline -Foul Odor after Cleansing No No No -Anesthetic Used 5% Lidocaine 5% Lidocaine 5% Lidocaine Gel Gel Gel #1 right wheeler -Combined with other wound No No -Current Size (cm) - Length 2.8 2.5 1.8 -Current Size (cm) - Width 0.9 0.7 0.5 -Current Size (cm) - Depth 0.2 0.1 0.2 -Total Square Cm 2.52 1.75 0.90 -Date of Last Picture (Recall this 11/07/22 field) -Photo Taken Yes No Yes -Epithelialization None Present None Present -Tunneling No No -Undermining/Tunneling No No -Circular Undermining No No -Exudate Amt Medium Small Small -Exudate Type Serosanguineous Serosanguineous Serosanguineous -Wound Margin Flat & Intact Flat & Intact Distinct, Outline Attached -Granulation Amt Small (1-33%) Small (1-33%) Small (1-33%) -Granulation Quality [address] [address] -Slough/Fibrin Yes Yes -Necrosis Amt Large (67-100%) Large (67-100%) Small (1-33%) -Necrotic Tissue Type Adherent Slough Adherent Slough Adherent Slough -Structure Exposed N/A N/A N/A -Texture (Yelena-wound Skin Appearance) Assessed, Assessed, Scarring Localized Edema Localized Edema ,Scarring -Moisture (Yelena-wound Skin Appearance) No Abnormality, Assessed Dry/Scaly Assessed -Color (Yelena-wound Skin Appearance) Assessed, Assessed, Erythema Hemosiderin Hemosiderin Staining Staining -Temperature (Yelena-wound Skin No Abnormality No Abnormality No Abnormality Appearance) (Pt Warm) (Pt Warm) (Pt Warm) -Tenderness on Palpation (Yelena-wound No No No Skin Appearance) -Ulcer Cleansing Rinsed/ Rinsed/ Soap and Water Irrigated with Irrigated with Saline Saline -Foul Odor after Cleansing No No No -Anesthetic Used 5% Lidocaine 5% Lidocaine 5% Lidocaine Gel Gel Gel Lower Limb Edema Present Yes Yes Right Calf (cm) 50.2 48.0 46 Right Ankle (cm) 29.2 28.5 28 Left Calf (cm) 44.7 Left Ankle (cm) 28.1 WC - Nurse 2 - General Ulcer CM Notes Start: 11/07/22 08:21 Freq: Status: Active Protocol: Activity Type Activity Date Activity User E-sign Co-sign Detail Recorded Client Recorded Date Recorded By Document 11/07/22 11:58 PL [id number] 11/07/22 12:00 PL Document 11/14/22 09:16 PL [id number] 11/14/22 09:18 PL 11/07/22 11/14/22 11:58 09:16 Wound Center Nurse 2 #2 right lateral LE -Time 08:46 08:30 -Correct Patient Yes Yes -Correct Side, Site, Position Yes Yes -Correct Procedure Yes Yes -Procedure Performed Yes Yes -Type of Procedure Debridement Debridement -Clinical Debridement Subcutaneous Subcutaneous -Tissue Removed Subcutaneous Subcutaneous -Post Debridement (cm) - Length 7.8 8.3 -Post Debridement (cm) - Width 0.7 0.5 -Post Debridement (cm) - Depth 0.2 0.2 -Total Square (Post) (cm) 5.46 4.15 -Area of Debridement (cm) - Length 7.8 8.3 -Area of Debridement (cm) - Width 0.7 0.5 -Total Square (Area) (cm) 5.46 4.15 -Tunneling No No -Undermining/Tunneling No No -Circular Undermining No No -Wound/Ulcer Outcome Not Healed Not Healed -Ulcer Cleansing Rinsed/ Rinsed/ Irrigated with Irrigated with Saline Saline -Foul Odor after Cleansing No No -Bioengineered Tissue No No -Bleeding Controlled with NA Pressure -Treatment Response Procedure Procedure Tolerated Well Tolerated Well -Debridement - Subq, 1st 20sq cm No No #1 right wheeler -Time 08:46 08:30 -Correct Patient Yes Yes -Correct Side, Site, Position Yes Yes -Correct Procedure Yes Yes -Procedure Performed Yes Yes -Type of Procedure Debridement Debridement -Clinical Debridement Subcutaneous Subcutaneous -Tissue Removed Subcutaneous Subcutaneous -Post Debridement (cm) - Length 2.8 2.5 -Post Debridement (cm) - Width 0.9 0.7 -Post Debridement (cm) - Depth 0.2 0.1 -Total Square (Post) (cm) 2.52 1.75 -Area of Debridement (cm) - Length 2.8 2.5 -Area of Debridement (cm) - Width 0.9 0.7 -Total Square (Area) (cm) 2.52 1.75 -Tunneling No No -Undermining/Tunneling No No -Circular Undermining No No -Wound/Ulcer Outcome Not Healed Not Healed -Ulcer Cleansing Rinsed/ Rinsed/ Irrigated with Irrigated with Saline Saline -Foul Odor after Cleansing No No -Bioengineered Tissue No No -Bleeding Controlled with Pressure Pressure -Treatment Response Procedure Procedure Tolerated Well Tolerated Well -Debridement - Subq, 1st 20sq cm Yes Yes Pain Scale: 0-10 Numeric Is Patient Pain Free? Yes Yes WC - Nurse 3 - General Ulcer D/C NN Start: 11/07/22 08:21 Freq: Status: Active Protocol: Activity Type Activity Date Activity User E-sign Co-sign Detail Recorded Client Recorded Date Recorded By Document 11/07/22 09:22 MW [id number] 11/07/22 09:24 MW Document 11/14/22 08:43 MW [id number] 11/14/22 08:45 MW 11/07/22 11/14/22 09:22 08:43 Wound Care Center Nurse 3 #2 right lateral LE -Ulcer Cleansing Rinsed/ Rinsed/ Irrigated with Irrigated with Saline Saline -Foul Odor after Cleansing No -Negative Pressure Wound Therapy N/A -Primary Dressing Applied Hysept ($) -Other Dressing hydrogel -Primary Dressing Covered/Secured with Dry Gauze & Dry Gauze & Roll Gauze, Roll Gauze, Secured with Secured with Tape Tape -Other Covering ABD abd #1 right wheeler -Ulcer Cleansing Rinsed/ Rinsed/ Irrigated with Irrigated with Saline Saline -Foul Odor after Cleansing No No -Negative Pressure Wound Therapy N/A -Other Dressing hydrogel dakins wet to dry -Primary Dressing Covered/Secured with Dry Gauze & Dry Gauze & Roll Gauze, Roll Gauze, Secured with Secured with Tape Tape -Other Covering ABD Right -Lotion applied to leg before No No compression wrap -Tubular Bandage Single Layer Single Layer -Size of Tubigrip Used Size E Size E -Size E ($) 2 1 -Stockings Yes Left -Lotion applied to leg before No No compression wrap -Tubular Bandage Single Layer Single Layer -Size of Tubigrip Used Size E Size E -Size E ($) 2 1 Treatment Response Procedure Tolerated Well Pain Scale: 0-10 Numeric Is Patient Pain Free? Yes Yes Teaching: Wound Center Compression Wraps & Stockings -Person Taught Patient,Family Patient,Family -Teaching Method Discussion, Discussion Demonstration -Response to teaching Verbalize Verbalize understanding understanding Dressing Your Wound -Person Taught Patient,Family -Teaching Method Discussion, Demonstration -Response to teaching Verbalize understanding WC - Visit Discharge Discharge Condition Stable Stable Ambulatory Status Ambulatory Ambulatory Transportation Private Auto Private Auto Accompanied by Medication Reconcilliation completed & No No provided to patient/care provider Clinical Summary of Care Provided Yes Yes Notes: Dressing applied per George Flores RN Additional Wound Wound debrided: Right lateral calf, dehiscent laceration Laterality: Right Type of Debridement: Excisional debridement Anesthesia Used: 5% Lidocaine Gel Depth: Down to and including healthy tissue and in the subcutaneous layer Percentage of wound debrided: 100 Instrument Used: 5mm curette Tissue Removed: Bioburden and nonviable tissue Severity: Fat Layer Exposed Amount of bleeding with debridement: Mild Bleeding Controlled with: Compression and gauze Patient tolerated procedure: Patient tolerated procedure well Assessment/Plan Assessment/Plan (1) Leg wound, right: CODE(S): S81.801A - Unspecified open wound, right lower leg, initial encounter QUALIFIERS: Encounter type: subsequent encounter Qualified Code(s): S81.801D - Unspecified open wound, right lower leg, subsequent encounter (2) Laceration of right leg excluding thigh: CODE(S): S81.811A - Laceration without foreign body, right lower leg, initial encounter QUALIFIERS: Encounter type: subsequent encounter Qualified Code(s): S81.811D - Laceration without foreign body, right lower leg, subsequent encounter (3) Wound dehiscence: CODE(S): T81.30XA - Disruption of wound, unspecified, initial encounter (4) History of prostate cancer: CODE(S): Z85.46 - Personal history of malignant neoplasm of prostate (5) Hypertension: CODE(S): I10 - Essential (primary) hypertension (6) Hyperlipidemia: CODE(S): E78.5 - Hyperlipidemia, unspecified (7) Atrial fibrillation: CODE(S): I48.91 - Unspecified atrial fibrillation (8) Hyperpigmentation: CODE(S): L81.9 - Disorder of pigmentation, unspecified (9) Lipodermatosclerosis of both lower extremities: CODE(S): I83.11 - Varicose veins of right lower extremity with inflammation; I83.12 - Varicose veins of left lower extremity with inflammation (10) Swelling of both lower extremities: CODE(S): M79.89 - Other specified soft tissue disorders (11) Edema of both legs: CODE(S): R60.0 - Localized edema (12) Obesity (BMI 30.0-34.9): CODE(S): E66.9 - Obesity, unspecified (13) Fracture of left wrist: CODE(S): S62.102A - Fracture of unspecified carpal bone, left wrist, initial encounter for closed fracture PLAN: Plan This is an 82-year-old male who presented with traumatic wounds which occurred on October 13, 2022. He was initially treated in an emergency room setting. Suture closure was performed relative to a laceration on the right lateral calf. Following removal of his sutures, approximately 2 weeks following his injury, the laceration dehisced. The patient presented with 2 wounds in the right lower extremity related to his recent traumatic injury. The patient is seen to have chronic swelling and edema in both lower extremities, with hyperpigmentation and lipodermatosclerosis in the gaiter areas bilaterally. He is not very active, and sleeps in a chair at night. A lengthy discussion has been undertaken with the patient and his . Leg elevation has been encouraged, and a lengthy discussion has been undertaken as to the means by which this can be accomplished. The patient is to elevate his legs to heart level, or higher, is much as possible. He has been encouraged to sleep on a flat surface at night. He has been encouraged to elevate his lower extremities as much as possible during daytime hours. Prolonged idle sitting has been discouraged. Activity has been encouraged, though the degree to which the patient can enhance his activity is question. Weight loss has been recommended. We are to continue compression to the lower extremities by means of Tubigrip's, equivalent to 20 to 30 mmHg compression. The patient's is to assist him in donning the compression garments. They have had difficulty in the past in donning graduated compression stockings. Long-term management may entail the use of CircAid Velcro compression garments. Optimizing the patient's nutritional intake has been encouraged. Collagenase Santyl was prescribed at the patient's initial visit, but the patient failed to obtain the product due to its high expense. Even with a coupon, the cost was $300, beyond the patient's ability to purchase. Therefore, we have implemented the use of Dakin's?moistened gauze. This is to be continued topically on a daily basis. Instructions have been provided to the patient and his as to the appropriate means of application. The means by which this is to be applied have been demonstrated. A noninvasive lower extremity arterial study has been performed, revealing no evidence of significant arterial occlusive disease. The patient is to return in 1 week for reassessment. Long-term control of the patient's lower extremity swelling, edema, and lipodermatosclerosis has been emphasized. Thus far, his compliance with leg elevation appears to be only fair. Total time: 27 minutes
[2022-11-28 12:54] VITALS: BP 144/82; PULSE 78; RESP 20; TEMP 35.6; BMI 33.9
--- NOTE | 2022-11-28 13:42 | PCM.WC.HP ---
History of Present Illness Date of Service: 11/28/22 Chief Complaint: Traumatic wounds of the right lower extremity History of Wound: This is an 82-year-old male who was in his normal state of health until October 13, 2022. At that time, he tripped on a step stool, experiencing a fall. As result of his fall, the patient sought medical attention in the emergency department at an [facility]. He was diagnosed with a hairline left radial wrist fracture, and was placed in a volar splint. He was found to have an open wound of the right pretibial area, and a large laceration on the right lateral calf. Laceration on the right lateral calf was sutured closed with 9 sutures. Sutures removed on October 26, 2022, following which the laceration dehisced. The patient presented with an open wound on the right pretibial surface and on the right lateral calf. It is noted that the patient has been treated with a course of oral doxycycline. He has been using Bactroban topically to each of the wounds. He suffers from chronic swelling and edema in his lower extremities. He has profound hyperpigmentation and lipodermatosclerosis in the gaiter areas bilaterally. He sleeps in a chair, and is not very active. He spends a great deal of each day idle and sitting. [facility] Medical History Atrial fibrillation Edema of both legs Fracture of left wrist History of prostate cancer Hyperlipidemia Hyperpigmentation Hypertension Laceration of right leg excluding thigh Leg wound, right Lipodermatosclerosis of both lower extremities Obesity (BMI 30.0-34.9) Swelling of both lower extremities Wound dehiscence Home Medications atorvastatin 40 mg tablet 40 mg PO DAILY 11/07/22 [History Last Taken Unknown] cholecalciferol (vitamin D3) 10 mcg (400 unit) capsule (Vitamin D3) 20 mcg PO DAILY 11/07/22 [History Last Taken Unknown] etodolac 400 mg tablet 400 mg PO Q8H PRN Inflammation 11/07/22 [History Last Taken Unknown] furosemide 40 mg tablet 40 mg PO DAILY 11/07/22 [History Last Taken Unknown] leucovorin calcium 15 mg tablet 15 mg PO QWEEK 11/07/22 [History Last Taken Unknown] metoprolol succinate 50 mg tablet,extended release 24 hr (Toprol XL) 75 mg PO DAILY 11/07/22 [History Last Taken Unknown] prednisone 10 mg tablet 10 mg PO PRN PRN poison shavon 11/07/22 [History Last Taken Unknown] triamcinolone 0.1 % topical ointment and dimethicone 5 % topical cream 0.1 ea topical 11/07/22 [History Last Taken Unknown] warfarin 7.5 mg tablet 7.5 mg PO DAILY 11/07/22 [History Last Taken Unknown] Allergy/AdvReac Type Severity Reaction Status Date / Time Sulfa (Sulfonamide Allergy Swelling Verified 11/07/22 08:47 Antibiotics) Social History Smoking Status: Never smoker Vital Signs Vital Signs Vital Signs: 11/28/22 12:54 Temperature 96.1 F L Temperature Source Temporal Pulse Rate 78 Respiratory Rate 20 H Blood Pressure 144/82 H Blood Pressure Mean 102 Blood Pressure Source Monitor Weight Weight: 250 lb Body Mass Index (BMI) 33.9 Physical Exam Const alert, oriented x3, no apparent distress and well nourished Constitutional Narrative: The patient is mildly obese. General Appearance: cooperative, comfortable, well kempt and well developed Orientation / Consciousness: awake, oriented to person, oriented to place and oriented to time HEENT normocephalic and head/scalp atraumatic Head and Scalp: normal to inspection, normocephalic and atraumatic Face and Sinus: normal facial exam External Ear: external ears normal Eyes PERRL and EOMs intact bilaterally General Eye: normal appearance of both eyes Neck full ROM Resp normal respiratory effort, normal air movement, no retractions and no use of accessory muscles Effort and Inspection: able to speak in complete sentences Extremity no calf tenderness General Extremity: Negative for clubbing or cyanosis Skin Wound Narrative: There has been much improvement in the swelling and edema in the patient's lower extremities bilaterally. Severe, pronounced hyperpigmentation and lipodermatosclerosis is noted bilaterally in the gaiter areas. An open wound is noted on the right pretibial area. A dehiscent laceration is noted on the right lateral calf. Each of the 2 wounds has decreased in size since the patient's last visit. At each site, there is a small amount of bioburden and nonviable tissue. There is no obvious sign of infection or cellulitis. Dimensions of each wound are noted elsewhere. There is an increase in the amount of pink, healthy granulation tissue at each site. Neuro oriented x3, CN's II-XII intact bilaterally, moves all extremities and no focal motor deficits Sensorium / Orientation: awake, alert, oriented to person, oriented to place and oriented to time Psych Appearance: grossly normal and appropriate Attitude: calm Activity / Motor Behavior: appropriate eye contact Speech: normal speech Mood & Affect: euthymic mood Thought Process: normal thought process Thought Content: normal thought content Attention / Concentration: attention grossly intact Debridement Note Debridement Note Wound debrided: Pretibial area, right lower extremity Laterality: Right Type of Debridement: Excisional debridement Anesthesia Used: 5% Lidocaine Gel Depth: Down to and including healthy tissue and in the subcutaneous layer Percentage of wound debrided: 100 Instrument Used: 3mm curette Tissue Removed: Bioburden and nonviable tissue Severity: Fat Layer Exposed Amount of bleeding with debridement: Mild Bleeding Controlled with: Compression and gauze Patient tolerated procedure: Patient tolerated procedure well Post-Debridement Measurements and Additional Note: Post-Debridement Measurements/Treatment - Nurse 1 - General Ulcer Assessment Start: 11/07/22 08:21 Freq: Status: Active Protocol: NAS Activity Type Activity Date Activity User E-sign Co-sign Detail Recorded Client Recorded Date Recorded By Document 11/07/22 08:22 MW [id number] 11/07/22 08:30 MW Document 11/14/22 08:01 MW [id number] 11/14/22 08:05 MW Document 11/21/22 08:28 DL [id number] 11/21/22 08:35 DL Document 11/28/22 12:54 DL [id number] 11/28/22 13:02 DL 11/07/22 11/14/22 11/21/22 08:22 08:01 08:28 - Today's Visit Information Type of service Initial Visit Follow-up Visit Follow-up Visit (Physician/SCIENTOLOGIST (Physician/SCIENTOLOGIST ) ) Arrival Mode Ambulatory Ambulatory Ambulatory Transfer Assistance None None None Accompanied by Patient Identification Verified (Name & Yes Yes Yes ) Patient Requires Transmission-Based No No No Precautions Safety Precautions NA NA Height and Weight Height 6 ft Weight 250 lb Weight in Pounds 250.0 lbs Body Mass Index (BMI) 33.9 33.9 33.9 BMI Classification Obese Obese Obese BSA - Woo 2.34 Vital Signs Temperature (97.8 F-99.1 F) 96.2 F L 96.7 F L 97.3 F L Temperature Source Temporal Temporal Temporal Pulse Rate (60-100) 89 83 79 Pulse Location Monitor Monitor Monitor Respiratory Rate (12-18) 18 18 20 H Respiratory rate source Observation Observation Oxygen Delivery Method Room Air Room Air Blood Pressure (90/60-120/80) 117/75 135/81 H 119/79 Blood Pressure Mean 89 99 92 Source Monitor Monitor Monitor Position Sitting Sitting Blood Pressure Location Right Arm Right Arm History Since Last Visit- (Skip if this is Patient's initial visit) Have you changed medications since your No No last visit? Any new allergies or adverse reactions No No Had a fall/change in ADL's that may No No increase risk of falls Signs or symptoms of abuse and/or No No neglect since last visit Have you been in the hospital since your No last visit? Has dressing in place as prescribed Yes Has compression in place as prescribed Yes Has offloadiing in place as prescribed N/A Experienced any changes in pain level or No management Left Footwear Regular Shoe Regular Shoe Right Footwear Regular Shoe Regular Shoe Pain Scale: 0-10 Numeric Is Patient Pain Free? Yes Yes Yes Lower Extremity Assessment/ Foot Assessment/ Toe Nail Assessment Right -Posterior Tibial Palpable No -Posterior Tibial Doppler Monophasic -Dorsalis Pedis Palpable Yes -Dorsalis Pedis Doppler Monophasic -Extremity Color Hemosiderin -Hair Growth on Legs No -Hair Growth on Toes No -Temperature of Extremity Warm -Capillary Refill Less than 3 Seconds -Dependent Rubor No -Blanched when Elevated No -Lipodermatosclerosis No -Other Deformity No -Prior Foot Ulcer No -Charcot Joint No -Prior Amputation No -Thick No -Discolored No -Deformed No -Improper Length & Hygeine Yes Left -Polpliteal Pulses Palpable No -Posterior Tibial Palpable No -Posterior Tibial Doppler Monophasic -Dorsalis Pedis Palpable Yes -Dorsalis Pedis Doppler Monophasic -Extremity Color Hemosiderin -Hair Growth on Legs No -Hair Growth on Toes No -Temperature of Extremity Warm -Capillary Refill Less than 3 Seconds -Dependent Rubor No -Blanched when Elevated No -Lipodermatosclerosis No -Other Deformity No -Prior Foot Ulcer No -Charcot Joint No -Prior Amputation No -Thick No -Discolored No -Deformed No -Improper Length & Hygeine Yes Neuropathy Assessment Feet - Top Side and Bottom <Entered> (a) Communication Assessment Preferred language [place] Residential Door Installer Required No Able to Read Yes Able to Write Yes Communication Tools None Caregiver Communication Skills No Impairment Impairment Right Hearing Abillity Normal Left Hearing Abillity Normal Visual Assistive Devices Glasses Teaching Assessment Preferences Verbal,Written, Audio/Visual, Demonstration Barriers to Learning None Readiness To Learn Excellent Willingness to Engage in Self Management High Activies Readiness to Engage in Self Management High Activities Anxiety Level Calm Cooperation Cooperative Perception Coherent Interest in Health Problem Asks Questions Education Importance Acknowledges Need Does Patient Smoke tobacco or other Yes substances Smoking Status Never smoker Is Patient Diabetic No Functional Assessment Recent Decline in Ability to Perform Denies Any Declines Assistive Device With Patient No Culture/Anabaptist/Body Shop Floorperson Cultural/Anabaptist Needs that may affect No Treatment Plan Would you allow our hospital supervisor grips to No meet you for the purpose of spiritual/ emotional support? Body Shop Floorperson to contact place of holiness No 11/28/22 12:54 WC - Today's Visit Information Type of service Follow-up Visit (Physician/SCIENTOLOGIST ) Arrival Mode Ambulatory Transfer Assistance None Accompanied by Patient Identification Verified (Name & Yes ) Patient Requires Transmission-Based No Precautions Safety Precautions Height and Weight Height Weight Weight in Pounds Body Mass Index (BMI) 33.9 BMI Classification Obese BSA - Woo Vital Signs Temperature (97.8 F-99.1 F) 96.1 F L Temperature Source Temporal Pulse Rate (60-100) 78 Pulse Location Monitor Respiratory Rate (12-18) 20 H Respiratory rate source Observation Oxygen Delivery Method Blood Pressure (90/60-120/80) 144/82 H Blood Pressure Mean 102 Source Monitor Position Blood Pressure Location History Since Last Visit- (Skip if this is Patient's initial visit) Have you changed medications since your No last visit? Any new allergies or adverse reactions No Had a fall/change in ADL's that may No increase risk of falls Signs or symptoms of abuse and/or No neglect since last visit Have you been in the hospital since your No last visit? Has dressing in place as prescribed Yes Has compression in place as prescribed Has offloadiing in place as prescribed N/A Experienced any changes in pain level or No management Left Footwear Regular Shoe Right Footwear Regular Shoe Pain Scale: 0-10 Numeric Is Patient Pain Free? Yes Lower Extremity Assessment/ Foot Assessment/ Toe Nail Assessment Right -Posterior Tibial Palpable -Posterior Tibial Doppler -Dorsalis Pedis Palpable -Dorsalis Pedis Doppler -Extremity Color -Hair Growth on Legs -Hair Growth on Toes -Temperature of Extremity -Capillary Refill -Dependent Rubor -Blanched when Elevated -Lipodermatosclerosis -Other Deformity -Prior Foot Ulcer -Charcot Joint -Prior Amputation -Thick -Discolored -Deformed -Improper Length & Hygeine Left -Polpliteal Pulses Palpable -Posterior Tibial Palpable -Posterior Tibial Doppler -Dorsalis Pedis Palpable -Dorsalis Pedis Doppler -Extremity Color -Hair Growth on Legs -Hair Growth on Toes -Temperature of Extremity -Capillary Refill -Dependent Rubor -Blanched when Elevated -Lipodermatosclerosis -Other Deformity -Prior Foot Ulcer -Charcot Joint -Prior Amputation -Thick -Discolored -Deformed -Improper Length & Hygeine Neuropathy Assessment Feet - Top Side and Bottom Communication Assessment Preferred language and literature division chair Required Able to Read Able to Write Communication Tools Caregiver Communication Skills Impairment Right Hearing Abillity Left Hearing Abillity Visual Assistive Devices Teaching Assessment Preferences Barriers to Learning Readiness To Learn Willingness to Engage in Self Management Activies Readiness to Engage in Self Management Activities Anxiety Level Cooperation Perception Interest in Health Problem Education Importance Does Patient Smoke tobacco or other substances Smoking Status Is Patient Diabetic Functional Assessment Recent Decline in Ability to Perform Assistive Device With Patient Culture/Anabaptist/Body Shop Floorperson Cultural/Anabaptist Needs that may affect Treatment Plan Would you allow our hospital supervisor grips to meet you for the purpose of spiritual/ emotional support? [employer] Shop Floorperson to contact place of holiness (a) 1 - + WC - Nurse 1 - General Ulcer Measurement Start: 11/07/22 08:21 Freq: Status: Active Protocol: Activity Type Activity Date Activity User E-sign Co-sign Detail Recorded Client Recorded Date Recorded By Document 11/07/22 08:22 MW [id number] 11/07/22 08:30 MW Document 11/14/22 08:01 MW [id number] 11/14/22 08:05 MW Document 11/21/22 08:28 DL [id number] 11/21/22 08:35 DL Document 11/28/22 12:54 DL [id number] 11/28/22 13:02 DL 11/07/22 11/14/22 11/21/22 08:22 08:01 08:28 Wound Center Nurse 1 #2 right lateral LE -Combined with other wound No No -Current Size (cm) - Length 7.8 8.3 7 -Current Size (cm) - Width 0.7 0.5 0.5 -Current Size (cm) - Depth 0.2 0.2 0.3 -Total Square Cm 5.46 4.15 3.5 -Date of Last Picture (Recall this 11/07/22 field) -Photo Taken Yes No Yes -Epithelialization None Present Small 1-33% -Tunneling No No -Undermining/Tunneling No No -Circular Undermining No No -Exudate Amt Medium Small Small -Exudate Type Serosanguineous Serosanguineous Serosanguineous -Wound Margin Flat & Intact Flat & Intact Distinct, Outline Attached -Granulation Amt None Present (0 Small (1-33%) Large (67-100%) %) -Granulation Quality N/A [place] -Slough/Fibrin Yes Yes -Necrosis Amt Large (67-100%) Large (67-100%) Small (1-33%) -Necrotic Tissue Type Adherent Slough Adherent Slough Adherent Slough -Structure Exposed N/A N/A -Texture (Yelena-wound Skin Appearance) Assessed, Assessed, Scarring Localized Edema Localized Edema ,Scarring -Moisture (Yelena-wound Skin Appearance) No Abnormality, No Abnormality, Dry/Scaly Assessed Assessed -Color (Yelena-wound Skin Appearance) Assessed, Assessed, Hemosiderin Hemosiderin Hemosiderin Staining Staining Staining -Temperature (Yelena-wound Skin No Abnormality No Abnormality No Abnormality Appearance) (Pt Warm) (Pt Warm) (Pt Warm) -Tenderness on Palpation (Yelena-wound No No Skin Appearance) -Ulcer Cleansing Rinsed/ Rinsed/ Soap and Water Irrigated with Irrigated with Saline Saline -Foul Odor after Cleansing No No No -Anesthetic Used 5% Lidocaine 5% Lidocaine 5% Lidocaine Gel Gel Gel #1 right wheeler -Combined with other wound No No -Current Size (cm) - Length 2.8 2.5 1.8 -Current Size (cm) - Width 0.9 0.7 0.5 -Current Size (cm) - Depth 0.2 0.1 0.2 -Total Square Cm 2.52 1.75 0.90 -Date of Last Picture (Recall this 11/07/22 field) -Photo Taken Yes No Yes -Epithelialization None Present None Present -Tunneling No No -Undermining/Tunneling No No -Circular Undermining No No -Exudate Amt Medium Small Small -Exudate Type Serosanguineous Serosanguineous Serosanguineous -Wound Margin Flat & Intact Flat & Intact Distinct, Outline Attached -Granulation Amt Small (1-33%) Small (1-33%) Small (1-33%) -Granulation Quality [place] -Slough/Fibrin Yes Yes -Necrosis Amt Large (67-100%) Large (67-100%) Small (1-33%) -Necrotic Tissue Type Adherent Slough Adherent Slough Adherent Slough -Structure Exposed N/A N/A N/A -Texture (Yelena-wound Skin Appearance) Assessed, Assessed, Scarring Localized Edema Localized Edema ,Scarring -Moisture (Yelena-wound Skin Appearance) No Abnormality, Assessed Dry/Scaly Assessed -Color (Yelena-wound Skin Appearance) Assessed, Assessed, Erythema Hemosiderin Hemosiderin Staining Staining -Temperature (Yelena-wound Skin No Abnormality No Abnormality No Abnormality Appearance) (Pt Warm) (Pt Warm) (Pt Warm) -Tenderness on Palpation (Yelena-wound No No No Skin Appearance) -Ulcer Cleansing Rinsed/ Rinsed/ Soap and Water Irrigated with Irrigated with Saline Saline -Foul Odor after Cleansing No No No -Anesthetic Used 5% Lidocaine 5% Lidocaine 5% Lidocaine Gel Gel Gel Lower Limb Edema Present Yes Yes Right Calf (cm) 50.2 48.0 46 Right Ankle (cm) 29.2 28.5 28 Left Calf (cm) 44.7 Left Ankle (cm) 28.1 11/28/22 12:54 Wound Center Nurse 1 #2 right lateral LE -Combined with other wound -Current Size (cm) - Length 6.2 -Current Size (cm) - Width 0.5 -Current Size (cm) - Depth 0.3 -Total Square Cm 3.10 -Date of Last Picture (Recall this field) -Photo Taken Yes -Epithelialization -Tunneling -Undermining/Tunneling -Circular Undermining -Exudate Amt Medium -Exudate Type Serous -Wound Margin Distinct, Outline Attached -Granulation Amt Medium (34-66%) -Granulation Quality Red -Slough/Fibrin -Necrosis Amt Medium (34-66%) -Necrotic Tissue Type Adherent Slough -Structure Exposed N/A -Texture (Yelena-wound Skin Appearance) Localized Edema ,Scarring -Moisture (Yelena-wound Skin Appearance) No Abnormality -Color (Yelena-wound Skin Appearance) Hemosiderin Staining -Temperature (Yelena-wound Skin Appearance) -Tenderness on Palpation (Yelena-wound No Skin Appearance) -Ulcer Cleansing Rinsed/ Irrigated with Saline -Foul Odor after Cleansing No -Anesthetic Used 5% Lidocaine Gel #1 right wheeler -Combined with other wound -Current Size (cm) - Length 2 -Current Size (cm) - Width 0.4 -Current Size (cm) - Depth 0.2 -Total Square Cm 0.8 -Date of Last Picture (Recall this field) -Photo Taken Yes -Epithelialization -Tunneling -Undermining/Tunneling -Circular Undermining -Exudate Amt Medium -Exudate Type Serosanguineous -Wound Margin Distinct, Outline Attached -Granulation Amt Medium (34-66%) -Granulation Quality Red -Slough/Fibrin -Necrosis Amt Medium (34-66%) -Necrotic Tissue Type Adherent Slough -Structure Exposed N/A -Texture (Yelena-wound Skin Appearance) Localized Edema ,Scarring -Moisture (Yelena-wound Skin Appearance) No Abnormality -Color (Yelena-wound Skin Appearance) Hemosiderin Staining -Temperature (Yelena-wound Skin No Abnormality Appearance) (Pt Warm) -Tenderness on Palpation (Yelena-wound No Skin Appearance) -Ulcer Cleansing Rinsed/ Irrigated with Saline -Foul Odor after Cleansing No -Anesthetic Used 5% Lidocaine Gel Lower Limb Edema Present Right Calf (cm) 45 Right Ankle (cm) 27.7 Left Calf (cm) Left Ankle (cm) WC - Nurse 2 - General Ulcer CM Notes Start: 11/07/22 08:21 Freq: Status: Active Protocol: Activity Type Activity Date Activity User E-sign Co-sign Detail Recorded Client Recorded Date Recorded By Document 11/07/22 11:58 PL [id number] 11/07/22 12:00 PL Document 11/14/22 09:16 PL [id number] 06/13/23 09:18 PL Document 11/21/22 08:49 PL [id number] 11/21/22 08:51 PL 11/07/22 11/14/22 11/21/22 11:58 09:16 08:49 Wound Center Nurse 2 #2 right lateral LE -Time 08: 08:30 08:40 -Correct Patient Yes Yes Yes -Correct Side, Site, Position Yes Yes Yes -Correct Procedure Yes Yes Yes -Procedure Performed Yes Yes Yes -Type of Procedure Debridement Debridement Debridement -Clinical Debridement Subcutaneous Subcutaneous Subcutaneous -Tissue Removed Subcutaneous Subcutaneous Subcutaneous -Post Debridement (cm) - Length 7.8 8.3 7.0 -Post Debridement (cm) - Width 0.7 0.5 0.5 -Post Debridement (cm) - Depth 0.2 0.2 0.3 -Total Square (Post) (cm) 5.46 4.15 3.50 -Area of Debridement (cm) - Length 7.8 8.3 7.0 -Area of Debridement (cm) - Width 0.7 0.5 0.5 -Total Square (Area) (cm) 5.46 4.15 3.50 -Tunneling No No No -Undermining/Tunneling No No No -Circular Undermining No No No -Wound/Ulcer Outcome Not Healed Not Healed Not Healed -Ulcer Cleansing Rinsed/ Rinsed/ Rinsed/ Irrigated with Irrigated with Irrigated with Saline Saline Saline -Foul Odor after Cleansing No No No -Bioengineered Tissue No No No -Bleeding Controlled with NA Pressure Pressure -Treatment Response Procedure Procedure Procedure Tolerated Well Tolerated Well Tolerated Well -Debridement - Subq, 1st 20sq cm No No No #1 right wheeler -Time 08:30 08:40 -Correct Patient Yes Yes Yes -Correct Side, Site, Position Yes Yes Yes -Correct Procedure Yes Yes Yes -Procedure Performed Yes Yes Yes -Type of Procedure Debridement Debridement Debridement -Clinical Debridement Subcutaneous Subcutaneous Subcutaneous -Tissue Removed Subcutaneous Subcutaneous Subcutaneous -Post Debridement (cm) - Length 2.8 2.5 1.8 -Post Debridement (cm) - Width 0.9 0.7 0.5 -Post Debridement (cm) - Depth 0.2 0.1 0.2 -Total Square (Post) (cm) 2.52 1.75 0.90 -Area of Debridement (cm) - Length 2.8 2.5 1.8 -Area of Debridement (cm) - Width 0.9 0.7 0.3 -Total Square (Area) (cm) 2.52 1.75 0.54 -Tunneling No No No -Undermining/Tunneling No No No -Circular Undermining No No No -Wound/Ulcer Outcome Not Healed Not Healed Not Healed -Ulcer Cleansing Rinsed/ Rinsed/ Rinsed/ Irrigated with Irrigated with Irrigated with Saline Saline Saline -Foul Odor after Cleansing No No No -Bioengineered Tissue No No No -Bleeding Controlled with Pressure Pressure Pressure -Treatment Response Procedure Procedure Procedure Tolerated Well Tolerated Well Tolerated Well -Debridement - Subq, 1st 20sq cm Yes Yes Yes Pain Scale: 0-10 Numeric Is Patient Pain Free? Yes Yes Yes WC - Nurse 3 - General Ulcer D/C NN Start: 11/07/22 08:21 Freq: Status: Active Protocol: Activity Type Activity Date Activity User E-sign Co-sign Detail Recorded Client Recorded Date Recorded By Document 11/07/22 09:22 MW [id number] 11/07/22 09:24 MW Document 11/14/22 08:43 MW [id number] 11/14/22 08:45 MW Document 11/21/22 08:55 DL [id number] 11/21/22 08:56 DL Document 11/28/22 12:54 DL [id number] 11/28/22 13:02 DL Edit Result 11/28/22 12:54 DL (1) [id number] 11/28/22 13:29 DL (1) #2 right lateral LE - Primary Dressing Applied => Promogran - Primary Dressing Covered/Secured with => Dry Gauze & Roll => Gauze,Secured with => Tape - Promogran => 1 #1 right wheeler - Ulcer Cleansing => Rinsed/Irrigated => with Saline - Foul Odor after Cleansing => No - Other Dressing => promogran - Primary Dressing Covered/Secured with => Dry Gauze & Roll => Gauze,Secured with => Tape Right - Tubular Bandage => Single Layer - Size of Tubigrip Used => Size D - Size D ($) => 1 11/07/22 11/14/22 11/21/22 09:22 08:43 08:55 Wound Care Center Nurse 3 #2 right lateral LE -Ulcer Cleansing Rinsed/ Rinsed/ Rinsed/ Irrigated with Irrigated with Irrigated with Saline Saline Saline -Foul Odor after Cleansing No No -Negative Pressure Wound Therapy N/A -Primary Dressing Applied Hysept ($) -Other Dressing hydrogel dakins -Primary Dressing Covered/Secured with Dry Gauze & Dry Gauze & Dry Gauze & Roll Gauze, Roll Gauze, Roll Gauze, Secured with Secured with Secured with Tape Tape Tape -Other Covering ABD abd -Promogran #1 right wheeler -Ulcer Cleansing Rinsed/ Rinsed/ Rinsed/ Irrigated with Irrigated with Irrigated with Saline Saline Saline -Foul Odor after Cleansing No No -Negative Pressure Wound Therapy N/A -Other Dressing hydrogel dakins wet to dakins dry -Primary Dressing Covered/Secured with Dry Gauze & Dry Gauze & Dry Gauze & Roll Gauze, Roll Gauze, Roll Gauze, Secured with Secured with Secured with Tape Tape Tape -Other Covering ABD Right -Lotion applied to leg before No No compression wrap -Tubular Bandage Single Layer Single Layer Single Layer -Size of Tubigrip Used Size E Size E Size E -Size D ($) -Size E ($) 2 1 1 -Stockings Yes Left -Lotion applied to leg before No No compression wrap -Tubular Bandage Single Layer Single Layer -Size of Tubigrip Used Size E Size E -Size E ($) 2 1 Treatment Response Procedure Procedure Tolerated Well Tolerated Well Vital Signs Temperature (97.8 F-99.1 F) Temperature Source Pulse Rate (60-100) Pulse Location Respiratory Rate (12-18) Respiratory rate source Blood Pressure (90/60-120/80) Blood Pressure Mean Source Pain Scale: 0-10 Numeric Is Patient Pain Free? Yes Yes Yes Teaching: Wound Center Compression Wraps & Stockings -Person Taught Patient,Family Patient,Family -Teaching Method Discussion, Discussion Demonstration -Response to teaching Verbalize Verbalize understanding understanding Dressing Your Wound -Person Taught Patient,Family -Teaching Method Discussion, Demonstration -Response to teaching Verbalize understanding WC - Visit Discharge Discharge Condition Stable Stable Stable Ambulatory Status Ambulatory Ambulatory Ambulatory Transportation Private Auto Private Auto Private Auto Accompanied by Medication Reconcilliation completed & No No provided to patient/care provider Clinical Summary of Care Provided Yes Yes Notes: Dressing applied per George Flores RN 11/28/22 12:54 Wound Care Center Nurse 3 #2 right lateral LE -Ulcer Cleansing -Foul Odor after Cleansing -Negative Pressure Wound Therapy -Primary Dressing Applied Promogran -Other Dressing -Primary Dressing Covered/Secured with Dry Gauze & Roll Gauze, Secured with Tape -Other Covering -Promogran 1 #1 right wheeler -Ulcer Cleansing Rinsed/ Irrigated with Saline -Foul Odor after Cleansing No -Negative Pressure Wound Therapy -Other Dressing promogran -Primary Dressing Covered/Secured with Dry Gauze & Roll Gauze, Secured with Tape -Other Covering Right -Lotion applied to leg before compression wrap -Tubular Bandage Single Layer -Size of Tubigrip Used Size D -Size D ($) 1 -Size E ($) -Stockings Left -Lotion applied to leg before compression wrap -Tubular Bandage -Size of Tubigrip Used -Size E ($) Treatment Response Vital Signs Temperature (97.8 F-99.1 F) 96.1 F L Temperature Source Temporal Pulse Rate (60-100) 78 Pulse Location Monitor Respiratory Rate (12-18) 20 H Respiratory rate source Observation Blood Pressure (90/60-120/80) 144/82 H Blood Pressure Mean 102 Source Monitor Pain Scale: 0-10 Numeric Is Patient Pain Free? Yes Teaching: Wound Center Compression Wraps & Stockings -Person Taught -Teaching Method -Response to teaching Dressing Your Wound -Person Taught -Teaching Method -Response to teaching WC - Visit Discharge Discharge Condition Ambulatory Status Transportation Accompanied by Medication Reconcilliation completed & provided to patient/care provider Clinical Summary of Care Provided Notes: Additional Wound Wound debrided: Right lateral calf, dehiscent laceration Laterality: Right Type of Debridement: Excisional debridement Anesthesia Used: 5% Lidocaine Gel Depth: Down to and including healthy tissue and in the subcutaneous layer Percentage of wound debrided: 100 Instrument Used: 3mm curette Tissue Removed: Bioburden and nonviable tissue Severity: Fat Layer Exposed Amount of bleeding with debridement: Mild Bleeding Controlled with: Compression and gauze Patient tolerated procedure: Patient tolerated procedure well Assessment/Plan Assessment/Plan (1) Leg wound, right: CODE(S): S81.801A - Unspecified open wound, right lower leg, initial encounter QUALIFIERS: Encounter type: subsequent encounter Qualified Code(s): S81.801D - Unspecified open wound, right lower leg, subsequent encounter (2) Laceration of right leg excluding thigh: CODE(S): S81.811A - Laceration without foreign body, right lower leg, initial encounter QUALIFIERS: Encounter type: subsequent encounter Qualified Code(s): S81.811D - Laceration without foreign body, right lower leg, subsequent encounter (3) Wound dehiscence: CODE(S): T81.30XA - Disruption of wound, unspecified, initial encounter (4) History of prostate cancer: CODE(S): Z85.46 - Personal history of malignant neoplasm of prostate (5) Hypertension: CODE(S): I10 - Essential (primary) hypertension (6) Hyperlipidemia: CODE(S): E78.5 - Hyperlipidemia, unspecified (7) Atrial fibrillation: CODE(S): I48.91 - Unspecified atrial fibrillation (8) Hyperpigmentation: CODE(S): L81.9 - Disorder of pigmentation, unspecified (9) Lipodermatosclerosis of both lower extremities: CODE(S): I83.11 - Varicose veins of right lower extremity with inflammation; I83.12 - Varicose veins of left lower extremity with inflammation (10) Swelling of both lower extremities: CODE(S): M79.89 - Other specified soft tissue disorders (11) Edema of both legs: CODE(S): R60.0 - Localized edema (12) Obesity (BMI 30.0-34.9): CODE(S): E66.9 - Obesity, unspecified (13) Fracture of left wrist: CODE(S): S62.102A - Fracture of unspecified carpal bone, left wrist, initial encounter for closed fracture PLAN: Plan This is an 82-year-old male who presented with traumatic wounds which occurred on October 13, 2022. He was initially treated in an emergency room setting. Suture closure was performed relative to a laceration on the right lateral calf. Following removal of his sutures, approximately 2 weeks following his injury, the laceration dehisced. The patient presented with 2 wounds in the right lower extremity related to his recent traumatic injury. The patient is seen to have chronic swelling and edema in both lower extremities, with hyperpigmentation and lipodermatosclerosis in the gaiter areas bilaterally. He is not very active, and sleeps in a chair at night. A lengthy discussion has been undertaken with the patient and his . Leg elevation has been encouraged, and a lengthy discussion has been undertaken as to the means by which this can be accomplished. The patient is to elevate his legs to heart level, or higher, is much as possible. He has been encouraged to sleep on a flat surface at night. He has been encouraged to elevate his lower extremities as much as possible during daytime hours. Prolonged idle sitting has been discouraged. Activity has been encouraged, though the degree to which the patient can enhance his activity is question. Weight loss has been recommended. We are to continue compression to the lower extremities by means of Tubigrip's, equivalent to 20 to 30 mmHg compression. The patient's is to assist him in donning the compression garments. They have had difficulty in the past in donning graduated compression stockings. Long-term management may entail the use of CircAid Velcro compression garments. Optimizing the patient's nutritional intake has been encouraged. Collagenase Santyl was prescribed at the patient's initial visit, but the patient failed to obtain the product due to its high expense. Even with a coupon, the cost was $300, beyond the patient's ability to purchase. Therefore, we implemented the use of Dakin's?moistened gauze. At this juncture, we are transitioning to the use of Promogran, which will be applied topically on a daily basis. Instructions have been provided to the patient and his as to the appropriate means of application. The means by which this is to be applied have been demonstrated. A noninvasive lower extremity arterial study has been performed, revealing no evidence of significant arterial occlusive disease. The patient is to return in 1 week for reassessment. Long-term control of the patient's lower extremity swelling, edema, and lipodermatosclerosis has been emphasized. Total time: 28 minutes
== END 2022-12-01 23:59 | disposition home or self-care (01) ==
LOC: WC 13:00
PROVIDERS: PCP Family Medicine; Referring Provider Nurse Practitioner Family; Visit Provider Surgery
DX: T81.33XA Disruption of traumatic injury wound repair, initial encounter (principal); I73.9 Peripheral vascular disease, unspecified; I48.91 Unspecified atrial fibrillation; S81.811A Laceration without foreign body, right lower leg, initial encounter; S81.801A Unspecified open wound, right lower leg, initial encounter; I83.11 Varicose veins of right lower extremity with inflammation; I83.12 Varicose veins of left lower extremity with inflammation; S62.102D Fracture of unspecified carpal bone, left wrist, subsequent encounter for fracture with routine healing; S52.302D Unspecified fracture of shaft of left radius, subsequent encounter for closed fracture with routine healing; R60.0 Localized edema; I10 Essential (primary) hypertension; E78.5 Hyperlipidemia, unspecified; E66.9 Obesity, unspecified; Z68.33 Body mass index [BMI] 33.0-33.9, adult; Z79.1 Long term (current) use of non-steroidal anti-inflammatories (NSAID); Z79.52 Long term (current) use of systemic steroids; Z79.01 Long term (current) use of anticoagulants; Z79.899 Other long term (current) drug therapy; Z85.46 Personal history of malignant neoplasm of prostate; W18.09XA Striking against other object with subsequent fall, initial encounter
CPT/HCPCS: 11042; 93923; 99213; G0463

== ENCOUNTER 2022-12-19 08:00 | Outpatient (RCR) | payer MEDICARE, OTHER, SELFPAY ==
[2022-12-02 00:22] VITALS: BP 144/82; PULSE 78; RESP 20; TEMP 35.6; BMI 33.9
[2022-12-06 15:05] VITALS: BP 117/60; PULSE 82; RESP 16; TEMP 36.2; BMI 33.9
--- NOTE | 2022-12-06 15:40 | HP.PCM_ITS ---
History of Present Illness Date of Service: 12/06/22 Chief Complaint: Traumatic wounds of the right lower extremity History of Wound: This is an 82-year-old male who was in his normal state of health until October 13, 2022. At that time, he tripped on a step stool, experiencing a fall. As result of his fall, the patient sought medical attention in the emergency department at an [facility]. He was diagnosed with a hairline left radial wrist fracture, and was placed in a volar splint. He was found to have an open wound of the right pretibial area, and a large laceration on the right lateral calf. Laceration on the right lateral calf was sutured closed with 9 sutures. Sutures removed on October 26, 2022, following which the laceration dehisced. The patient presented with an open wound on the right pretibial surface and on the right lateral calf. It is noted that the patient has been treated with a course of oral doxycycline. He has been using Bactroban topically to each of the wounds. He suffers from chronic swelling and edema in his lower extremities. He has profound hyperpigmentation and lipodermatosclerosis in the gaiter areas bilaterally. He sleeps in a chair, and is not very active. He spends a great deal of each day idle and sitting. [facility] Medical History Atrial fibrillation Edema of both legs Fracture of left wrist History of prostate cancer Hyperlipidemia Hyperpigmentation Hypertension Laceration of right leg excluding thigh Leg wound, right Lipodermatosclerosis of both lower extremities Obesity (BMI 30.0-34.9) Swelling of both lower extremities Wound dehiscence Home Medications atorvastatin 40 mg tablet 40 mg PO DAILY 11/07/22 [History Last Taken Unknown] cholecalciferol (vitamin D3) 10 mcg (400 unit) capsule (Vitamin D3) 20 mcg PO DAILY 11/07/22 [History Last Taken Unknown] etodolac 400 mg tablet 400 mg PO Q8H PRN Inflammation 11/07/22 [History Last Taken Unknown] furosemide 40 mg tablet 40 mg PO DAILY 11/07/22 [History Last Taken Unknown] leucovorin calcium 15 mg tablet 15 mg PO QWEEK 11/07/22 [History Last Taken Unknown] metoprolol succinate 50 mg tablet,extended release 24 hr (Toprol XL) 75 mg PO DAILY 11/07/22 [History Last Taken Unknown] prednisone 10 mg tablet 10 mg PO PRN PRN poison shavon 11/07/22 [History Last Taken Unknown] triamcinolone 0.1 % topical ointment and dimethicone 5 % topical cream 0.1 ea topical 11/07/22 [History Last Taken Unknown] warfarin 7.5 mg tablet 7.5 mg PO DAILY 11/07/22 [History Last Taken Unknown] Allergy/AdvReac Type Severity Reaction Status Date / Time Sulfa (Sulfonamide Allergy Swelling Verified 11/07/22 08:47 Antibiotics) Social History Smoking Status: Never smoker Vital Signs Vital Signs Vital Signs: 12/06/22 15:05 Temperature 97.2 F L Temperature Source Temporal Pulse Rate 82 Respiratory Rate 16 Blood Pressure 117/60 Blood Pressure Mean 79 Blood Pressure Source Monitor Blood Pressure Position Sitting Blood Pressure Location Right Arm Oxygen Delivery Method Room Air Weight Weight: 250 lb Body Mass Index (BMI) 33.9 Physical Exam Const alert, oriented x3, no apparent distress and well nourished Constitutional Narrative: The patient is mildly obese. General Appearance: cooperative, comfortable, well kempt and well developed Orientation / Consciousness: awake, oriented to person, oriented to place and oriented to time HEENT normocephalic and head/scalp atraumatic Head and Scalp: normal to inspection, normocephalic and atraumatic Face and Sinus: normal facial exam External Ear: external ears normal Eyes PERRL and EOMs intact bilaterally General Eye: normal appearance of both eyes Neck full ROM Resp normal respiratory effort, normal air movement, no retractions and no use of accessory muscles Effort and Inspection: able to speak in complete sentences Extremity no calf tenderness General Extremity: Negative for clubbing or cyanosis Skin Wound Narrative: There has been improvement in the swelling and edema in the patient's lower extremities bilaterally. Severe, pronounced hyperpigmentation and lipodermatosclerosis is noted bilaterally in the gaiter areas. An open wound is noted on the right pretibial area. A dehiscent laceration is noted on the right lateral calf. Each of the 2 wounds has decreased in size since the patient's last visit. At each site, there is a small amount of bioburden and nonviable tissue. There is no obvious sign of infection or cellulitis. Dimensions of each wound are noted elsewhere. There is an increase in the amount of pink, healthy granulation tissue at each site. Neuro oriented x3, CN's II-XII intact bilaterally, moves all extremities and no focal motor deficits Sensorium / Orientation: awake, alert, oriented to person, oriented to place and oriented to time Psych Appearance: grossly normal and appropriate Attitude: calm Activity / Motor Behavior: appropriate eye contact Speech: normal speech Mood & Affect: euthymic mood Thought Process: normal thought process Thought Content: normal thought content Attention / Concentration: attention grossly intact Debridement Note Debridement Note Wound debrided: Pretibial area, right lower extremity Laterality: Right Type of Debridement: Excisional debridement Anesthesia Used: 5% Lidocaine Gel Depth: Down to and including healthy tissue and in the subcutaneous layer Percentage of wound debrided: 100 Instrument Used: 3mm curette Tissue Removed: Bioburden and nonviable tissue Severity: Fat Layer Exposed Amount of bleeding with debridement: Mild Bleeding Controlled with: Compression and gauze Patient tolerated procedure: Patient tolerated procedure well Post-Debridement Measurements and Additional Note: Post-Debridement Measurements/Treatment - Nurse 1 - General Ulcer Assessment Start: 12/06/22 15:04 Freq: Status: Active Protocol: NAS Activity Type Activity Date Activity User E-sign Co-sign Detail Recorded Client Recorded Date Recorded By Document 12/06/22 15:05 [facility] [id number] 12/06/22 15:15 [facility] 12/06/22 15:05 - Today's Visit Information Type of service Follow-up Visit (Physician/[facility] ) Arrival Mode Ambulatory Transfer Assistance None Accompanied by Patient Identification Verified (Name & Yes ) Patient Requires Transmission-Based No Precautions Height and Weight Body Mass Index (BMI) 33.9 BMI Classification Obese Vital Signs Temperature (97.8 F-99.1 F) 97.2 F L Temperature Source Temporal Pulse Rate (60-100) 82 Respiratory Rate (12-18) 16 Respiratory rate source Observation Oxygen Delivery Method Room Air Blood Pressure (90/60-120/80) 117/60 Blood Pressure Mean 79 Source Monitor Position Sitting Blood Pressure Location Right Arm History Since Last Visit- (Skip if this is Patient's initial visit) Have you changed medications since your No last visit? Any new allergies or adverse reactions No Had a fall/change in ADL's that may No increase risk of falls Signs or symptoms of abuse and/or No neglect since last visit Have you been in the hospital since your No last visit? Has dressing in place as prescribed Yes Has compression in place as prescribed Yes Has offloadiing in place as prescribed N/A Experienced any changes in pain level or No management Left Footwear Regular Shoe Right Footwear Regular Shoe Pain Scale: 0-10 Numeric Is Patient Pain Free? Yes WC - Nurse 1 - General Ulcer Measurement Start: 12/06/22 15:04 Freq: Status: Active Protocol: Activity Type Activity Date Activity User E-sign Co-sign Detail Recorded Client Recorded Date Recorded By Document 12/06/22 15:05 [facility] [id number] 12/06/22 15:15 [facility] 12/06/22 15:05 Wound Center Nurse 1 #2 right lateral LE -Combined with other wound No -Current Size (cm) - Length 6.5 -Current Size (cm) - Width 0.6 -Current Size (cm) - Depth 0.3 -Total Square Cm 3.90 -Date of Last Picture (Recall this 12/06/22 field) -Photo Taken Yes -Epithelialization Small 1-33% -Tunneling No -Undermining/Tunneling No -Circular Undermining No -Exudate Amt Medium -Exudate Type Serosanguineous -Wound Margin Distinct, Outline Attached -Granulation Amt Small (1-33%) -Granulation Quality Madelia -Slough/Fibrin Yes -Necrosis Amt Large (67-100%) -Necrotic Tissue Type Adherent Slough -Texture (Yelena-wound Skin Appearance) Assessed, Scarring -Moisture (Yelean-wound Skin Appearance) Assessed -Color (Yelena-wound Skin Appearance) Assessed -Temperature (Yelena-wound Skin No Abnormality Appearance) (Pt Warm) -Tenderness on Palpation (Yelena-wound No Skin Appearance) -Ulcer Cleansing Rinsed/ Irrigated with Saline -Foul Odor after Cleansing No -Anesthetic Used 5% Lidocaine Gel #1 right wheeler -Combined with other wound No -Current Size (cm) - Length 1.9 -Current Size (cm) - Width 0.4 -Current Size (cm) - Depth 0.1 -Total Square Cm 0.76 -Date of Last Picture (Recall this 12/06/22 field) -Photo Taken Yes -Epithelialization None Present -Tunneling No -Undermining/Tunneling No -Circular Undermining No -Exudate Amt None Present -Wound Margin Distinct, Outline Attached -Granulation Amt None Present (0 %) -Slough/Fibrin Yes -Necrosis Amt Large (67-100%) -Necrotic Tissue Type Adherent Slough -Texture (Yelena-wound Skin Appearance) Assessed, Scarring -Moisture (Yelena-wound Skin Appearance) Assessed -Color (Yelena-wound Skin Appearance) Assessed -Temperature (Yelena-wound Skin No Abnormality Appearance) (Pt Warm) -Tenderness on Palpation (Yelena-wound No Skin Appearance) -Ulcer Cleansing Rinsed/ Irrigated with Saline -Foul Odor after Cleansing No -Anesthetic Used 5% Lidocaine Gel Lower Limb Edema Present Yes Right Calf (cm) 43.7 Right Ankle (cm) 27.2 Additional Wound Wound debrided: Right lateral calf, dehiscent laceration Laterality: Right Type of Debridement: Excisional debridement Anesthesia Used: 5% Lidocaine Gel Depth: Down to and including healthy tissue and in the subcutaneous layer Percentage of wound debrided: 100 Instrument Used: 3mm curette Tissue Removed: Bioburden and nonviable tissue Severity: Fat Layer Exposed Amount of bleeding with debridement: Mild Bleeding Controlled with: Compression and gauze Patient tolerated procedure: Patient tolerated procedure well Assessment/Plan Assessment/Plan (1) Leg wound, right: CODE(S): S81.801A - Unspecified open wound, right lower leg, initial encounter QUALIFIERS: Encounter type: subsequent encounter Qualified Code(s): S81.801D - Unspecified open wound, right lower leg, subsequent encounter (2) Laceration of right leg excluding thigh: CODE(S): S81.811A - Laceration without foreign body, right lower leg, initial encounter QUALIFIERS: Encounter type: subsequent encounter Qualified Code(s): S81.811D - Laceration without foreign body, right lower leg, subsequent encounter (3) Wound dehiscence: CODE(S): T81.30XA - Disruption of wound, unspecified, initial encounter (4) History of prostate cancer: CODE(S): Z85.46 - Personal history of malignant neoplasm of prostate (5) Hypertension: CODE(S): I10 - Essential (primary) hypertension (6) Hyperlipidemia: CODE(S): E78.5 - Hyperlipidemia, unspecified (7) Atrial fibrillation: CODE(S): I48.91 - Unspecified atrial fibrillation (8) Hyperpigmentation: CODE(S): L81.9 - Disorder of pigmentation, unspecified (9) Lipodermatosclerosis of both lower extremities: CODE(S): I83.11 - Varicose veins of right lower extremity with inflammation; I83.12 - Varicose veins of left lower extremity with inflammation (10) Swelling of both lower extremities: CODE(S): M79.89 - Other specified soft tissue disorders (11) Edema of both legs: CODE(S): R60.0 - Localized edema (12) Obesity (BMI 30.0-34.9): CODE(S): E66.9 - Obesity, unspecified (13) Fracture of left wrist: CODE(S): S62.102A - Fracture of unspecified carpal bone, left wrist, initial encounter for closed fracture PLAN: Plan This is an 82-year-old male who presented with traumatic wounds which occurred on October 13, 2022. He was initially treated in an emergency room setting. Suture closure was performed relative to a laceration on the right lateral calf. Following removal of his sutures, approximately 2 weeks following his injury, the laceration dehisced. The patient presented with 2 wounds in the right lower extremity related to his recent traumatic injury. The patient is seen to have chronic swelling and edema in both lower extremities, with hyperpigmentation and lipodermatosclerosis in the gaiter areas bilaterally. He is not very active, and sleeps in a chair at night. A lengthy discussion has been undertaken with the patient and his . Leg elevation has been encouraged, and a lengthy discussion has been undertaken as to the means by which this can be accomplished. The patient is to elevate his legs to heart level, or higher, is much as possible. He has been encouraged to sleep on a flat surface at night. He has been encouraged to elevate his lower extremities as much as possible during daytime hours. Prolonged idle sitting has been discouraged. Activity has been encouraged, though the degree to which the patient can enhance his activity is question. Weight loss has been recommended. We are to continue compression to the lower extremities by means of Tubigrip's, equivalent to 20 to 30 mmHg compression. The patient's is to assist him in donning the compression garments. They have had difficulty in the past in donning graduated compression stockings. Long-term management may entail the use of CircAid Velcro compression garments. Optimizing the patient's nutritional intake has been encouraged. Collagenase Santyl was prescribed at the patient's initial visit, but the patient failed to obtain the product due to its high expense. Even with a coupon, the cost was $300, beyond the patient's ability to purchase. Therefore, we implemented the use of Dakin's?moistened gauze. We are now using Promogran, which will be applied topically on a daily basis. Instructions have been provided to the patient and his as to the appropriate means of application. The means by which this is to be applied have been demonstrated. A noninvasive lower extremity arterial study has been performed, revealing no evidence of significant arterial occlusive disease. The patient is to return in 1 week for reassessment. Long-term control of the patient's lower extremity swelling, edema, and lipodermatosclerosis has been emphasized. Total time: 26 minutes
[2022-12-12 08:08] VITALS: BP 112/75; PULSE 79; RESP 20; TEMP 35.9; BMI 33.9
--- NOTE | 2022-12-12 08:44 | PCM.WC.HP ---
History of Present Illness Date of Service: 12/12/22 Chief Complaint: Traumatic wounds of the right lower extremity History of Wound: This is an 82-year-old male who was in his normal state of health until October 13, 2022. At that time, he tripped on a step stool, experiencing a fall. As result of his fall, the patient sought medical attention in the emergency department at an [facility]. He was diagnosed with a hairline left radial wrist fracture, and was placed in a volar splint. He was found to have an open wound of the right pretibial area, and a large laceration on the right lateral calf. Laceration on the right lateral calf was sutured closed with 9 sutures. Sutures removed on October 26, 2022, following which the laceration dehisced. The patient presented with an open wound on the right pretibial surface and on the right lateral calf. It is noted that the patient has been treated with a course of oral doxycycline. He has been using Bactroban topically to each of the wounds. He suffers from chronic swelling and edema in his lower extremities. He has profound hyperpigmentation and lipodermatosclerosis in the gaiter areas bilaterally. He sleeps in a chair, and is not very active. He spends a great deal of each day idle and sitting. COUNT INCLUDES THE [facility] Medical History Atrial fibrillation Edema of both legs Fracture of left wrist History of prostate cancer Hyperlipidemia Hyperpigmentation Hypertension Laceration of right leg excluding thigh Leg wound, right Lipodermatosclerosis of both lower extremities Obesity (BMI 30.0-34.9) Swelling of both lower extremities Wound dehiscence Home Medications atorvastatin 40 mg tablet 40 mg PO DAILY 11/07/22 [History Last Taken Unknown] cholecalciferol (vitamin D3) 10 mcg (400 unit) capsule (Vitamin D3) 20 mcg PO DAILY 11/07/22 [History Last Taken Unknown] etodolac 400 mg tablet 400 mg PO Q8H PRN Inflammation 11/07/22 [History Last Taken Unknown] furosemide 40 mg tablet 40 mg PO DAILY 11/07/22 [History Last Taken Unknown] leucovorin calcium 15 mg tablet 15 mg PO QWEEK 11/07/22 [History Last Taken Unknown] metoprolol succinate 50 mg tablet,extended release 24 hr (Toprol XL) 75 mg PO DAILY 11/07/22 [History Last Taken Unknown] prednisone 10 mg tablet 10 mg PO PRN PRN poison shavon 11/07/22 [History Last Taken Unknown] triamcinolone 0.1 % topical ointment and dimethicone 5 % topical cream 0.1 ea topical 11/07/22 [History Last Taken Unknown] warfarin 7.5 mg tablet 7.5 mg PO DAILY 11/07/22 [History Last Taken Unknown] Allergy/AdvReac Type Severity Reaction Status Date / Time Sulfa (Sulfonamide Allergy Swelling Verified 11/07/22 08:47 Antibiotics) Social History Smoking Status: Never smoker Vital Signs Vital Signs Vital Signs: 12/12/22 08:08 Temperature 96.7 F L Temperature Source Temporal Pulse Rate 79 Respiratory Rate 20 H Blood Pressure 112/75 Blood Pressure Mean 87 Blood Pressure Source Monitor Weight Weight: 250 lb Body Mass Index (BMI) 33.9 Physical Exam Const alert, oriented x3, no apparent distress and well nourished Constitutional Narrative: The patient is mildly obese. General Appearance: cooperative, comfortable, well kempt and well developed Orientation / Consciousness: awake, oriented to person, oriented to place and oriented to time HEENT normocephalic and head/scalp atraumatic Head and Scalp: normal to inspection, normocephalic and atraumatic Face and Sinus: normal facial exam External Ear: external ears normal Eyes PERRL and EOMs intact bilaterally General Eye: normal appearance of both eyes Neck full ROM Resp normal respiratory effort, normal air movement, no retractions and no use of accessory muscles Effort and Inspection: able to speak in complete sentences Extremity no calf tenderness General Extremity: Negative for clubbing or cyanosis Skin Wound Narrative: There has been improvement in the swelling and edema in the patient's lower extremities bilaterally. Severe, pronounced hyperpigmentation and lipodermatosclerosis is noted bilaterally in the gaiter areas. An open wound is noted on the right pretibial area, which continues to diminish in size. A dehiscent laceration is noted on the right lateral calf, which also is diminishing in size. Each of the 2 wounds has decreased in size since the patient's last visit. At each site, there is a small amount of bioburden and nonviable tissue. There is no obvious sign of infection or cellulitis. Dimensions of each wound are noted elsewhere. There is an increase in the amount of pink, healthy granulation tissue at each site. Neuro oriented x3, CN's II-XII intact bilaterally, moves all extremities and no focal motor deficits Sensorium / Orientation: awake, alert, oriented to person, oriented to place and oriented to time Psych Appearance: grossly normal and appropriate Attitude: calm Activity / Motor Behavior: appropriate eye contact Speech: normal speech Mood & Affect: euthymic mood Thought Process: normal thought process Thought Content: normal thought content Attention / Concentration: attention grossly intact Debridement Note Debridement Note Wound debrided: Pretibial area, right lower extremity Laterality: Right Type of Debridement: Excisional debridement Anesthesia Used: 5% Lidocaine Gel Depth: Down to and including healthy tissue and in the subcutaneous layer Percentage of wound debrided: 100 Instrument Used: 3mm curette Tissue Removed: Bioburden and nonviable tissue Severity: Fat Layer Exposed Amount of bleeding with debridement: Mild Bleeding Controlled with: Compression and gauze Patient tolerated procedure: Patient tolerated procedure well Post-Debridement Measurements and Additional Note: Post-Debridement Measurements/Treatment - Nurse 1 - General Ulcer Assessment Start: 12/06/22 15:04 Freq: Status: Active Protocol: NAS Activity Type Activity Date Activity User E-sign Co-sign Detail Recorded Client Recorded Date Recorded By Document 12/06/22 15:05 [facility] [id number] 12/06/22 15:15 [facility] Document 12/12/22 08:08 DL [id number] 12/12/22 08:13 DL 12/06/22 12/12/22 15:05 08:08 - Today's Visit Information Type of service Follow-up Visit Follow-up Visit (Physician/ROUGHER HELPER (Physician/ROUGHER HELPER ) ) Arrival Mode Ambulatory Ambulatory Transfer Assistance None None Accompanied by Patient Identification Verified (Name & Yes Yes ) Patient Requires Transmission-Based No No Precautions Height and Weight Body Mass Index (BMI) 33.9 33.9 BMI Classification Obese Obese Vital Signs Temperature (97.8 F-99.1 F) 97.2 F L 96.7 F L Temperature Source Temporal Temporal Pulse Rate (60-100) 82 79 Pulse Location Monitor Respiratory Rate (12-18) 16 20 H Respiratory rate source Observation Observation Oxygen Delivery Method Room Air Blood Pressure (90/60-120/80) 117/60 112/75 Blood Pressure Mean 79 87 Source Monitor Monitor Position Sitting Blood Pressure Location Right Arm History Since Last Visit- (Skip if this is Patient's initial visit) Have you changed medications since your No No last visit? Any new allergies or adverse reactions No No Had a fall/change in ADL's that may No No increase risk of falls Signs or symptoms of abuse and/or No No neglect since last visit Have you been in the hospital since your No No last visit? Has dressing in place as prescribed Yes Yes Has compression in place as prescribed Yes Yes Has offloadiing in place as prescribed N/A Experienced any changes in pain level or No No management Left Footwear Regular Shoe Right Footwear Regular Shoe Pain Scale: 0-10 Numeric Is Patient Pain Free? Yes Yes WC - Nurse 1 - General Ulcer Measurement Start: 12/06/22 15:04 Freq: Status: Active Protocol: Activity Type Activity Date Activity User E-sign Co-sign Detail Recorded Client Recorded Date Recorded By Document 12/06/22 15:05 [facility] [id number] 12/06/22 15:15 [facility] Document 12/12/22 08:08 [id number] 12/12/22 08:13 DL 12/06/22 12/12/22 15:05 08:08 Wound Center Nurse 1 #2 right lateral LE -Combined with other wound No -Current Size (cm) - Length 6.5 2.4 -Current Size (cm) - Width 0.6 0.3 -Current Size (cm) - Depth 0.3 0.1 -Total Square Cm 3.90 0.72 -Date of Last Picture (Recall this 12/06/22 field) -Photo Taken Yes No -Epithelialization Small 1-33% -Tunneling No -Undermining/Tunneling No -Circular Undermining No -Exudate Amt Medium Small -Exudate Type Serosanguineous Serosanguineous -Wound Margin Distinct, Distinct, Outline Outline Attached Attached -Granulation Amt Small (1-33%) Large (67-100%) -Granulation Quality [place] -Slough/Fibrin Yes -Necrosis Amt Large (67-100%) Small (1-33%) -Necrotic Tissue Type Adherent Slough Adherent Slough -Structure Exposed N/A -Texture (Yelena-wound Skin Appearance) Assessed, Scarring Scarring -Moisture (Yelena-wound Skin Appearance) Assessed No Abnormality -Color (Yelena-wound Skin Appearance) Assessed Hemosiderin Staining -Temperature (Yelena-wound Skin No Abnormality No Abnormality Appearance) (Pt Warm) (Pt Warm) -Tenderness on Palpation (Yelena-wound No No Skin Appearance) -Ulcer Cleansing Rinsed/ Rinsed/ Irrigated with Irrigated with Saline Saline -Foul Odor after Cleansing No No -Anesthetic Used 5% Lidocaine 5% Lidocaine Gel Gel #1 right wheeler -Combined with other wound No -Current Size (cm) - Length 1.9 0.1 -Current Size (cm) - Width 0.4 0.1 -Current Size (cm) - Depth 0.1 0.1 -Total Square Cm 0.76 0.01 -Date of Last Picture (Recall this 12/06/22 field) -Photo Taken Yes -Epithelialization None Present -Tunneling No -Undermining/Tunneling No -Circular Undermining No -Exudate Amt None Present None Present -Wound Margin Distinct, Thickened Outline Attached -Granulation Amt None Present (0 None Present (0 %) %) -Slough/Fibrin Yes -Necrosis Amt Large (67-100%) Small (1-33%) -Necrotic Tissue Type Adherent Slough Eschar -Structure Exposed N/A -Texture (Yelena-wound Skin Appearance) Assessed, Scarring Scarring -Moisture (Yelena-wound Skin Appearance) Assessed No Abnormality -Color (Yelena-wound Skin Appearance) Assessed Hemosiderin Staining -Temperature (Yelena-wound Skin No Abnormality No Abnormality Appearance) (Pt Warm) (Pt Warm) -Tenderness on Palpation (Yelena-wound No No Skin Appearance) -Ulcer Cleansing Rinsed/ Rinsed/ Irrigated with Irrigated with Saline Saline -Foul Odor after Cleansing No No -Anesthetic Used 5% Lidocaine 5% Lidocaine Gel Gel Lower Limb Edema Present Yes Right Calf (cm) 43.7 43.6 Right Ankle (cm) 27.2 28.5 WC - Nurse 2 - General Ulcer CM Notes Start: 12/06/22 15:04 Freq: Status: Active Protocol: Activity Type Activity Date Activity User E-sign Co-sign Detail Recorded Client Recorded Date Recorded By Document 12/06/22 16:23 PL [id number] 12/06/22 16:25 PL 12/06/22 16:23 Wound Center Nurse 2 #2 right lateral LE -Time 15:18 -Correct Patient Yes -Correct Side, Site, Position Yes -Correct Procedure Yes -Procedure Performed Yes -Type of Procedure Debridement -Clinical Debridement Subcutaneous -Tissue Removed Subcutaneous -Post Debridement (cm) - Length 6.5 -Post Debridement (cm) - Width 0.6 -Post Debridement (cm) - Depth 0.3 -Total Square (Post) (cm) 3.90 -Area of Debridement (cm) - Length 6.5 -Area of Debridement (cm) - Width 0.6 -Total Square (Area) (cm) 3.90 -Tunneling No -Undermining/Tunneling No -Circular Undermining No -Wound/Ulcer Outcome Not Healed -Ulcer Cleansing Rinsed/ Irrigated with Saline -Foul Odor after Cleansing No -Bioengineered Tissue No -Bleeding Controlled with Pressure -Treatment Response Procedure Tolerated Well -Debridement - Subq, 1st 20sq cm No #1 right wheeler -Time 15:18 -Correct Patient Yes -Correct Side, Site, Position Yes -Correct Procedure Yes -Procedure Performed Yes -Type of Procedure Debridement -Clinical Debridement Subcutaneous -Tissue Removed Subcutaneous -Post Debridement (cm) - Length 1.9 -Post Debridement (cm) - Width 0.4 -Post Debridement (cm) - Depth 0.1 -Total Square (Post) (cm) 0.76 -Area of Debridement (cm) - Length 1.9 -Area of Debridement (cm) - Width 0.4 -Total Square (Area) (cm) 0.76 -Tunneling No -Undermining/Tunneling No -Circular Undermining No -Wound/Ulcer Outcome Not Healed -Ulcer Cleansing Rinsed/ Irrigated with Saline -Foul Odor after Cleansing No -Bioengineered Tissue No -Bleeding Controlled with Pressure -Treatment Response Procedure Tolerated Well -Debridement - Subq, 1st 20sq cm Yes Pain Scale: 0-10 Numeric Is Patient Pain Free? Yes WC - Nurse 3 - General Ulcer D/C NN Start: 12/06/22 15:04 Freq: Status: Active Protocol: Activity Type Activity Date Activity User E-sign Co-sign Detail Recorded Client Recorded Date Recorded By Document 12/06/22 15:41 [facility] [id number] 12/06/22 15:42 [facility] 12/06/22 15:41 Wound Care Center Nurse 3 #2 right lateral LE -Ulcer Cleansing Rinsed/ Irrigated with Saline -Foul Odor after Cleansing No -Primary Dressing Applied Promogran -Primary Dressing Covered/Secured with Dry Gauze & Roll Gauze, Secured with Tape -Promogran 2 #1 right wheeler -Ulcer Cleansing Rinsed/ Irrigated with Saline -Foul Odor after Cleansing No -Primary Dressing Applied Promogran -Primary Dressing Covered/Secured with Dry Gauze & Roll Gauze, Secured with Tape -Promogran 0 BLE -Tubular Bandage Single Layer -Size of Tubigrip Used Size D -Size D ($) 2 Treatment Response Procedure Tolerated Well Pain Scale: 0-10 Numeric Is Patient Pain Free? Yes WC - Visit Discharge Discharge Condition Stable Ambulatory Status Ambulatory Transportation Private Auto Accompanied by Additional Wound Wound debrided: Right lateral calf, dehiscent laceration Laterality: Right Type of Debridement: Excisional debridement Anesthesia Used: 5% Lidocaine Gel Depth: Down to and including healthy tissue and in the subcutaneous layer Percentage of wound debrided: 100 Instrument Used: 3mm curette Tissue Removed: Bioburden and nonviable tissue Severity: Fat Layer Exposed Amount of bleeding with debridement: Mild Bleeding Controlled with: Compression and gauze Patient tolerated procedure: Patient tolerated procedure well Assessment/Plan Assessment/Plan (1) Leg wound, right: CODE(S): S81.801A - Unspecified open wound, right lower leg, initial encounter QUALIFIERS: Encounter type: subsequent encounter Qualified Code(s): S81.801D - Unspecified open wound, right lower leg, subsequent encounter (2) Laceration of right leg excluding thigh: CODE(S): S81.811A - Laceration without foreign body, right lower leg, initial encounter QUALIFIERS: Encounter type: subsequent encounter Qualified Code(s): S81.811D - Laceration without foreign body, right lower leg, subsequent encounter (3) Wound dehiscence: CODE(S): T81.30XA - Disruption of wound, unspecified, initial encounter (4) History of prostate cancer: CODE(S): Z85.46 - Personal history of malignant neoplasm of prostate (5) Hypertension: CODE(S): I10 - Essential (primary) hypertension (6) Hyperlipidemia: CODE(S): E78.5 - Hyperlipidemia, unspecified (7) Atrial fibrillation: CODE(S): I48.91 - Unspecified atrial fibrillation (8) Hyperpigmentation: CODE(S): L81.9 - Disorder of pigmentation, unspecified (9) Lipodermatosclerosis of both lower extremities: CODE(S): I83.11 - Varicose veins of right lower extremity with inflammation; I83.12 - Varicose veins of left lower extremity with inflammation (10) Swelling of both lower extremities: CODE(S): M79.89 - Other specified soft tissue disorders (11) Edema of both legs: CODE(S): R60.0 - Localized edema (12) Obesity (BMI 30.0-34.9): CODE(S): E66.9 - Obesity, unspecified (13) Fracture of left wrist: CODE(S): S62.102A - Fracture of unspecified carpal bone, left wrist, initial encounter for closed fracture PLAN: Plan This is an 82-year-old male who presented with traumatic wounds which occurred on October 13, 2022. He was initially treated in an emergency room setting. Suture closure was performed relative to a laceration on the right lateral calf. Following removal of his sutures, approximately 2 weeks following his injury, the laceration dehisced. The patient presented with 2 wounds in the right lower extremity related to his recent traumatic injury. The patient is seen to have chronic swelling and edema in both lower extremities, with hyperpigmentation and lipodermatosclerosis in the gaiter areas bilaterally. He is not very active, and sleeps in a chair at night. A lengthy discussion has been undertaken with the patient and his . Leg elevation has been encouraged, and a lengthy discussion has been undertaken as to the means by which this can be accomplished. The patient is to elevate his legs to heart level, or higher, is much as possible. He has been encouraged to sleep on a flat surface at night. He has been encouraged to elevate his lower extremities as much as possible during daytime hours. Prolonged idle sitting has been discouraged. Activity has been encouraged, though the degree to which the patient can enhance his activity is question. Weight loss has been recommended. We are to continue compression to the lower extremities by means of Tubigrip's, equivalent to 20 to 30 mmHg compression. The patient's is to assist him in donning the compression garments. They have had difficulty in the past in donning graduated compression stockings. Long-term management may entail the use of CircAid Velcro compression garments. Optimizing the patient's nutritional intake has been encouraged. Collagenase Santyl was prescribed at the patient's initial visit, but the patient failed to obtain the product due to its high expense. Even with a coupon, the cost was $300, beyond the patient's ability to purchase. Therefore, we implemented the use of Dakin's?moistened gauze. More recently, we have been using Promogran topically on a daily basis. At this juncture, we are to continue the use of Promogran topically on the right lateral calf dehiscent laceration. Because the right pretibial ulceration is quite small, we are to transition to the use of collagen hydrogel applied topically on a daily basis. The patient and his have been instructed in the appropriate means of application. A noninvasive lower extremity arterial study has been performed, revealing no evidence of significant arterial occlusive disease. The patient is to return in 1 week for reassessment. Long-term control of the patient's lower extremity swelling, edema, and lipodermatosclerosis has been emphasized. Total time: 25 minutes
[2022-12-19 08:07] VITALS: BP 128/76; PULSE 79; RESP 16; TEMP 35.9; BMI 33.9
--- NOTE | 2022-12-19 08:34 | PCM.WC.HP ---
History of Present Illness Date of Service: 12/19/22 Chief Complaint: Traumatic wounds of the right lower extremity History of Wound: This is an 82-year-old male who was in his normal state of health until October 13, 2022. At that time, he tripped on a step stool, experiencing a fall. As result of his fall, the patient sought medical attention in the emergency department at an [facility]. He was diagnosed with a hairline left radial wrist fracture, and was placed in a volar splint. He was found to have an open wound of the right pretibial area, and a large laceration on the right lateral calf. Laceration on the right lateral calf was sutured closed with 9 sutures. Sutures removed on October 26, 2022, following which the laceration dehisced. The patient presented with an open wound on the right pretibial surface and on the right lateral calf. It is noted that the patient has been treated with a course of oral doxycycline. He has been using Bactroban topically to each of the wounds. He suffers from chronic swelling and edema in his lower extremities. He has profound hyperpigmentation and lipodermatosclerosis in the gaiter areas bilaterally. He sleeps in a chair, and is not very active. He spends a great deal of each day idle and sitting. [facility] Medical History Atrial fibrillation Edema of both legs Fracture of left wrist History of prostate cancer Hyperlipidemia Hyperpigmentation Hypertension Laceration of right leg excluding thigh Leg wound, right Lipodermatosclerosis of both lower extremities Obesity (BMI 30.0-34.9) Swelling of both lower extremities Wound dehiscence Home Medications atorvastatin 40 mg tablet 40 mg PO DAILY 11/07/22 [History Last Taken Unknown] cholecalciferol (vitamin D3) 10 mcg (400 unit) capsule (Vitamin D3) 20 mcg PO DAILY 11/07/22 [History Last Taken Unknown] etodolac 400 mg tablet 400 mg PO Q8H PRN Inflammation 11/07/22 [History Last Taken Unknown] furosemide 40 mg tablet 40 mg PO DAILY 11/07/22 [History Last Taken Unknown] leucovorin calcium 15 mg tablet 15 mg PO QWEEK 11/07/22 [History Last Taken Unknown] metoprolol succinate 50 mg tablet,extended release 24 hr (Toprol XL) 75 mg PO DAILY 11/07/22 [History Last Taken Unknown] prednisone 10 mg tablet 10 mg PO PRN PRN poison shavon 11/07/22 [History Last Taken Unknown] triamcinolone 0.1 % topical ointment and dimethicone 5 % topical cream 0.1 ea topical 11/07/22 [History Last Taken Unknown] warfarin 7.5 mg tablet 7.5 mg PO DAILY 11/07/22 [History Last Taken Unknown] Allergy/AdvReac Type Severity Reaction Status Date / Time Sulfa (Sulfonamide Allergy Swelling Verified 11/07/22 08:47 Antibiotics) Social History Smoking Status: Never smoker Vital Signs Vital Signs Vital Signs: 12/19/22 08:07 Temperature 96.6 F L Temperature Source Temporal Pulse Rate 79 Respiratory Rate 16 Blood Pressure 128/76 H Blood Pressure Mean 93 Blood Pressure Source Monitor Blood Pressure Position Sitting Blood Pressure Location Left Forearm Oxygen Delivery Method Room Air Weight Weight: 250 lb Body Mass Index (BMI) 33.9 Physical Exam Const alert, oriented x3, no apparent distress and well nourished Constitutional Narrative: The patient is mildly obese. General Appearance: cooperative, comfortable, well kempt and well developed Orientation / Consciousness: awake, oriented to person, oriented to place and oriented to time HEENT normocephalic and head/scalp atraumatic Head and Scalp: normal to inspection, normocephalic and atraumatic Face and Sinus: normal facial exam External Ear: external ears normal Eyes PERRL and EOMs intact bilaterally General Eye: normal appearance of both eyes Neck full ROM Resp normal respiratory effort, normal air movement, no retractions and no use of accessory muscles Effort and Inspection: able to speak in complete sentences Extremity no calf tenderness General Extremity: Negative for clubbing or cyanosis Skin Wound Narrative: There has been improvement in the swelling and edema in the patient's lower extremities bilaterally. Severe, pronounced hyperpigmentation and lipodermatosclerosis is noted bilaterally in the gaiter areas. An open wound is noted on the right pretibial area, which continues to diminish in size. A dehiscent laceration is noted on the right lateral calf, which also is diminishing in size. Each of the 2 wounds has decreased in size since the patient's last visit. At each site, there is a small amount of bioburden and nonviable tissue. There is no obvious sign of infection or cellulitis. Dimensions of each wound are noted elsewhere. There is an increase in the amount of pink, healthy granulation tissue at each site. Neuro oriented x3, CN's II-XII intact bilaterally, moves all extremities and no focal motor deficits Sensorium / Orientation: awake, alert, oriented to person, oriented to place and oriented to time Psych Appearance: grossly normal and appropriate Attitude: calm Activity / Motor Behavior: appropriate eye contact Speech: normal speech Mood & Affect: euthymic mood Thought Process: normal thought process Thought Content: normal thought content Attention / Concentration: attention grossly intact Debridement Note Debridement Note Wound debrided: Pretibial area, right lower extremity Laterality: Right Type of Debridement: Excisional debridement Anesthesia Used: 5% Lidocaine Gel Depth: Down to and including healthy tissue and in the subcutaneous layer Percentage of wound debrided: 100 Instrument Used: 3mm curette Tissue Removed: Bioburden and nonviable tissue Severity: Fat Layer Exposed Amount of bleeding with debridement: Mild Bleeding Controlled with: Compression and gauze Patient tolerated procedure: Patient tolerated procedure well Post-Debridement Measurements and Additional Note: Post-Debridement Measurements/Treatment - Nurse 1 - General Ulcer Assessment Start: 12/06/22 15:04 Freq: Status: Active Protocol: NAS Activity Type Activity Date Activity User E-sign Co-sign Detail Recorded Client Recorded Date Recorded By Document 12/06/22 15:05 [facility] [id number] 12/06/22 15:15 [facility] Document 12/12/22 08:08 DL [id number] 12/12/22 08:13 DL Document 12/19/22 08:07 KW [id number] 12/19/22 08:17 KW 12/06/22 12/12/22 12/19/22 15:05 08:08 08:07 - Today's Visit Information Type of service Follow-up Visit Follow-up Visit Follow-up Visit (Physician/ANDROID PLATFORM DEVELOPER (Physician/ANDROID PLATFORM DEVELOPER (Physician/ANDROID PLATFORM DEVELOPER ) ) ) Arrival Mode Ambulatory Ambulatory Ambulatory Transfer Assistance None None Accompanied by Patient Identification Verified (Name & Yes Yes Yes ) Patient Requires Transmission-Based No No No Precautions Safety Precautions NA Height and Weight Body Mass Index (BMI) 33.9 33.9 33.9 BMI Classification Obese Obese Obese Vital Signs Temperature (97.8 F-99.1 F) 97.2 F L 96.7 F L 96.6 F L Temperature Source Temporal Temporal Temporal Pulse Rate (60-100) 82 79 79 Pulse Location Monitor Monitor Respiratory Rate (12-18) 16 20 H 16 Respiratory rate source Observation Observation Observation Oxygen Delivery Method Room Air Room Air Blood Pressure (90/60-120/80) 117/60 112/75 128/76 H Blood Pressure Mean 79 87 93 Source Monitor Monitor Monitor Position Sitting Sitting Blood Pressure Location Right Arm Left Forearm History Since Last Visit- (Skip if this is Patient's initial visit) Have you changed medications since your No No No last visit? Any new allergies or adverse reactions No No No Had a fall/change in ADL's that may No No No increase risk of falls Signs or symptoms of abuse and/or No No No neglect since last visit Have you been in the hospital since your No No No last visit? Has dressing in place as prescribed Yes Yes Yes Has compression in place as prescribed Yes Yes Yes Has offloadiing in place as prescribed N/A No Experienced any changes in pain level or No No No management Left Footwear Regular Shoe Regular Shoe Right Footwear Regular Shoe Regular Shoe Pain Scale: 0-10 Numeric Is Patient Pain Free? Yes Yes Yes WC - Nurse 1 - General Ulcer Measurement Start: 12/06/22 15:04 Freq: Status: Active Protocol: Activity Type Activity Date Activity User E-sign Co-sign Detail Recorded Client Recorded Date Recorded By Document 12/06/22 15:05 [facility] [id number] 12/06/22 15:15 [facility] Document 12/12/22 08:08 DL [id number] 12/12/22 08:13 DL Document 12/19/22 08:07 KW [id number] 12/19/22 08:17 KW 12/06/22 12/12/22 12/19/22 15:05 08:08 08:07 Wound Center Nurse 1 #1 right wheeler -Combined with other wound No -Current Size (cm) - Length 1.9 0.1 -Current Size (cm) - Width 0.4 0.1 -Current Size (cm) - Depth 0.1 0.1 -Total Square Cm 0.76 0.01 -Date of Last Picture (Recall this 12/06/22 field) -Photo Taken Yes -Epithelialization None Present -Tunneling No -Undermining/Tunneling No -Circular Undermining No -Exudate Amt None Present None Present -Wound Margin Distinct, Thickened Outline Attached -Granulation Amt None Present (0 None Present (0 %) %) -Slough/Fibrin Yes -Necrosis Amt Large (67-100%) Small (1-33%) -Necrotic Tissue Type Adherent Slough Eschar -Structure Exposed N/A -Texture (Yelena-wound Skin Appearance) Assessed, Scarring Scarring -Moisture (Yelena-wound Skin Appearance) Assessed No Abnormality -Color (Yelena-wound Skin Appearance) Assessed Hemosiderin Staining -Temperature (Yelena-wound Skin No Abnormality No Abnormality Appearance) (Pt Warm) (Pt Warm) -Tenderness on Palpation (Yelena-wound No No Skin Appearance) -Ulcer Cleansing Rinsed/ Rinsed/ Irrigated with Irrigated with Saline Saline -Foul Odor after Cleansing No No -Anesthetic Used 5% Lidocaine 5% Lidocaine Gel Gel #2 right lateral LE -Combined with other wound No -Current Size (cm) - Length 6.5 2.4 5 -Current Size (cm) - Width 0.6 0.3 0.2 -Current Size (cm) - Depth 0.3 0.1 0.1 -Total Square Cm 3.90 0.72 1.0 -Date of Last Picture (Recall this 12/06/22 12/19/22 field) -Photo Taken Yes No Yes -Epithelialization Small 1-33% -Tunneling No No -Undermining/Tunneling No No -Circular Undermining No No -Exudate Amt Medium Small -Exudate Type Serosanguineous Serosanguineous -Wound Margin Distinct, Distinct, Distinct, Outline Outline Outline Attached Attached Attached -Granulation Amt Small (1-33%) Large (67-100%) Large (67-100%) -Granulation Quality [place] Red -Slough/Fibrin Yes -Necrosis Amt Large (67-100%) Small (1-33%) Small (1-33%) -Necrotic Tissue Type Adherent Slough Adherent Slough -Structure Exposed N/A -Texture (Yelena-wound Skin Appearance) Assessed, Scarring Assessed Scarring -Moisture (Yelena-wound Skin Appearance) Assessed No Abnormality Assessed -Color (Yelena-wound Skin Appearance) Assessed Hemosiderin Assessed, Staining Hemosiderin Staining -Temperature (Yelena-wound Skin No Abnormality No Abnormality No Abnormality Appearance) (Pt Warm) (Pt Warm) (Pt Warm) -Tenderness on Palpation (Yelena-wound No No No Skin Appearance) -Ulcer Cleansing Rinsed/ Rinsed/ Rinsed/ Irrigated with Irrigated with Irrigated with Saline Saline Saline -Foul Odor after Cleansing No No No -Anesthetic Used 5% Lidocaine 5% Lidocaine 5% Lidocaine Gel Gel Gel Lower Limb Edema Present Yes Right Calf (cm) 43.7 43.6 45 Right Ankle (cm) 27.2 28.5 27.3 WC - Nurse 2 - General Ulcer CM Notes Start: 12/06/22 15:04 Freq: Status: Active Protocol: Activity Type Activity Date Activity User E-sign Co-sign Detail Recorded Client Recorded Date Recorded By Document 12/06/22 16:23 PL [id number] 12/06/22 16:25 PL Document 12/12/22 11:40 PL [id number] 12/12/22 11:41 PL 12/06/22 12/12/22 16:23 11:40 Wound Center Nurse 2 #1 right wheeler -Time 15:18 -Correct Patient Yes -Correct Side, Site, Position Yes -Correct Procedure Yes -Procedure Performed Yes No -Type of Procedure Debridement -Clinical Debridement Subcutaneous -Tissue Removed Subcutaneous -Post Debridement (cm) - Length 1.9 -Post Debridement (cm) - Width 0.4 -Post Debridement (cm) - Depth 0.1 -Total Square (Post) (cm) 0.76 -Area of Debridement (cm) - Length 1.9 -Area of Debridement (cm) - Width 0.4 -Total Square (Area) (cm) 0.76 -Tunneling No -Undermining/Tunneling No -Circular Undermining No -Wound/Ulcer Outcome Not Healed Healed- Epithelialized -Ulcer Cleansing Rinsed/ Irrigated with Saline -Foul Odor after Cleansing No -Bioengineered Tissue No -Bleeding Controlled with Pressure -Treatment Response Procedure Tolerated Well -Debridement - Subq, 1st 20sq cm Yes #2 right lateral LE -Time 15:18 08:32 -Correct Patient Yes Yes -Correct Side, Site, Position Yes Yes -Correct Procedure Yes Yes -Procedure Performed Yes Yes -Type of Procedure Debridement Debridement -Clinical Debridement Subcutaneous Subcutaneous -Tissue Removed Subcutaneous Subcutaneous -Post Debridement (cm) - Length 6.5 2.4 -Post Debridement (cm) - Width 0.6 0.3 -Post Debridement (cm) - Depth 0.3 0.1 -Total Square (Post) (cm) 3.90 0.72 -Area of Debridement (cm) - Length 6.5 2.4 -Area of Debridement (cm) - Width 0.6 0.3 -Total Square (Area) (cm) 3.90 0.72 -Tunneling No No -Undermining/Tunneling No No -Circular Undermining No No -Wound/Ulcer Outcome Not Healed Not Healed -Ulcer Cleansing Rinsed/ Rinsed/ Irrigated with Irrigated with Saline Saline -Foul Odor after Cleansing No No -Bioengineered Tissue No No -Bleeding Controlled with Pressure Pressure -Treatment Response Procedure Procedure Tolerated Well Tolerated Well -Debridement - Subq, 1st 20sq cm No Yes Pain Scale: 0-10 Numeric Is Patient Pain Free? Yes Yes WC - Nurse 3 - General Ulcer D/C NN Start: 12/06/22 15:04 Freq: Status: Active Protocol: Activity Type Activity Date Activity User E-sign Co-sign Detail Recorded Client Recorded Date Recorded By Document 12/06/22 15:41 [facility] [id number] 12/06/22 15:42 [facility] Document 12/12/22 10:52 DL [id number] 12/12/22 10:54 DL 12/06/22 12/12/22 15:41 10:52 Wound Care Center Nurse 3 #1 right wheeler -Ulcer Cleansing Rinsed/ Rinsed/ Irrigated with Irrigated with Saline Saline -Foul Odor after Cleansing No No -Primary Dressing Applied Promogran C Hydrogel ($) -Primary Dressing Covered/Secured with Dry Gauze & Dry Gauze & Roll Gauze, Roll Gauze, Secured with Secured with Tape Tape -Promogran 0 #2 right lateral LE -Ulcer Cleansing Rinsed/ Rinsed/ Irrigated with Irrigated with Saline Saline -Foul Odor after Cleansing No No -Primary Dressing Applied Promogran Promogran -Primary Dressing Covered/Secured with Dry Gauze & Dry Gauze & Roll Gauze, Roll Gauze, Secured with Secured with Tape Tape -Promogran 2 1 BLE -Tubular Bandage Single Layer Single Layer -Size of Tubigrip Used Size D Size D -Size D ($) 2 1 Treatment Response Procedure Procedure Tolerated Well Tolerated Well Pain Scale: 0-10 Numeric Is Patient Pain Free? Yes Yes WC - Visit Discharge Discharge Condition Stable Stable Ambulatory Status Ambulatory Ambulatory Transportation Private Auto Private Auto Accompanied by Facility Type Home Health Orders Sent Yes Additional Wound Wound debrided: Right lateral calf, dehiscent laceration Laterality: Right Type of Debridement: Excisional debridement Anesthesia Used: 5% Lidocaine Gel Depth: Down to and including healthy tissue and in the subcutaneous layer Percentage of wound debrided: 100 Instrument Used: 3mm curette Tissue Removed: Bioburden and nonviable tissue Severity: Fat Layer Exposed Amount of bleeding with debridement: Mild Bleeding Controlled with: Compression and gauze Patient tolerated procedure: Patient tolerated procedure well Assessment/Plan Assessment/Plan (1) Leg wound, right: CODE(S): S81.801A - Unspecified open wound, right lower leg, initial encounter QUALIFIERS: Encounter type: subsequent encounter Qualified Code(s): S81.801D - Unspecified open wound, right lower leg, subsequent encounter (2) Laceration of right leg excluding thigh: CODE(S): S81.811A - Laceration without foreign body, right lower leg, initial encounter QUALIFIERS: Encounter type: subsequent encounter Qualified Code(s): S81.811D - Laceration without foreign body, right lower leg, subsequent encounter (3) Wound dehiscence: CODE(S): T81.30XA - Disruption of wound, unspecified, initial encounter (4) History of prostate cancer: CODE(S): Z85.46 - Personal history of malignant neoplasm of prostate (5) Hypertension: CODE(S): I10 - Essential (primary) hypertension (6) Hyperlipidemia: CODE(S): E78.5 - Hyperlipidemia, unspecified (7) Atrial fibrillation: CODE(S): I48.91 - Unspecified atrial fibrillation (8) Hyperpigmentation: CODE(S): L81.9 - Disorder of pigmentation, unspecified (9) Lipodermatosclerosis of both lower extremities: CODE(S): I83.11 - Varicose veins of right lower extremity with inflammation; I83.12 - Varicose veins of left lower extremity with inflammation (10) Swelling of both lower extremities: CODE(S): M79.89 - Other specified soft tissue disorders (11) Edema of both legs: CODE(S): R60.0 - Localized edema (12) Obesity (BMI 30.0-34.9): CODE(S): E66.9 - Obesity, unspecified (13) Fracture of left wrist: CODE(S): S62.102A - Fracture of unspecified carpal bone, left wrist, initial encounter for closed fracture PLAN: Plan This is an 82-year-old male who presented with traumatic wounds which occurred on October 13, 2022. He was initially treated in an emergency room setting. Suture closure was performed relative to a laceration on the right lateral calf. Following removal of his sutures, approximately 2 weeks following his injury, the laceration dehisced. The patient presented with 2 wounds in the right lower extremity related to his recent traumatic injury. The patient is seen to have chronic swelling and edema in both lower extremities, with hyperpigmentation and lipodermatosclerosis in the gaiter areas bilaterally. He is not very active, and sleeps in a chair at night. A lengthy discussion has been undertaken with the patient and his . Leg elevation has been encouraged, and a lengthy discussion has been undertaken as to the means by which this can be accomplished. The patient is to elevate his legs to heart level, or higher, is much as possible. He has been encouraged to sleep on a flat surface at night. He has been encouraged to elevate his lower extremities as much as possible during daytime hours. Prolonged idle sitting has been discouraged. Activity has been encouraged, though the degree to which the patient can enhance his activity is question. Weight loss has been recommended. We are to continue compression to the lower extremities by means of Tubigrip's, equivalent to 20 to 30 mmHg compression. The patient's is to assist him in donning the compression garments. They have had difficulty in the past in donning graduated compression stockings. Long-term management may entail the use of CircAid Velcro compression garments. Optimizing the patient's nutritional intake has been encouraged. Collagenase Santyl was prescribed at the patient's initial visit, but the patient failed to obtain the product due to its high expense. Even with a coupon, the cost was $300, beyond the patient's ability to purchase. Therefore, we implemented the use of Dakin's?moistened gauze. More recently, we have been using Promogran topically on a daily basis. At this juncture, we are to utilize collagen hydrogel topically to each of the 2 right lower extremity wounds. The collagen hydrogel is to be applied on a daily basis. The patient and his have been instructed in the appropriate means of application. A noninvasive lower extremity arterial study has been performed, revealing no evidence of significant arterial occlusive disease. The patient has been provided a prescription for graduated compression stockings. Due to difficulties in donning stockings in the past, he has been provided a prescription for graduated compression stockings of 10 to 15 mmHg compression, and is to don a dual pair of the stockings each day, to provide a total of 20 to 30 mmHg compression to each lower extremity. This technique should assist the patient and his in donning the stockings each day. The patient is to return in 2 weeks for reassessment. Long-term control of the patient's lower extremity swelling, edema, and lipodermatosclerosis has been emphasized. Total time: 26 minutes
== END 2023-01-01 23:59 | disposition home or self-care (01) ==
LOC: WC 08:00
PROVIDERS: PCP Family Medicine; Referring Provider Nurse Practitioner Family; Visit Provider Surgery
DX: T81.30XA Disruption of wound, unspecified, initial encounter (principal); I48.91 Unspecified atrial fibrillation; S81.801S Unspecified open wound, right lower leg, sequela; I83.11 Varicose veins of right lower extremity with inflammation; S62.102D Fracture of unspecified carpal bone, left wrist, subsequent encounter for fracture with routine healing; I10 Essential (primary) hypertension; I83.12 Varicose veins of left lower extremity with inflammation; E78.5 Hyperlipidemia, unspecified; R60.0 Localized edema; S81.811S Laceration without foreign body, right lower leg, sequela; M79.89 Other specified soft tissue disorders; E66.9 Obesity, unspecified; Z68.33 Body mass index [BMI] 33.0-33.9, adult; Z79.01 Long term (current) use of anticoagulants; Z79.899 Other long term (current) drug therapy; Z85.46 Personal history of malignant neoplasm of prostate
CPT/HCPCS: 11042

== ENCOUNTER 2023-01-02 08:50 | Outpatient (RCR) | payer MEDICARE, OTHER, SELFPAY ==
[2023-01-02 00:11] VITALS: BP 128/76; PULSE 79; RESP 16; TEMP 35.9; BMI 33.9
[2023-01-02 08:55] VITALS: BP 116/74; PULSE 78; RESP 18; TEMP 35.7; BMI 33.9
--- NOTE | 2023-01-02 09:17 | PCM.WC.HP ---
History of Present Illness Date of Service: 01/02/23 Chief Complaint: Traumatic wounds of the right lower extremity History of Wound: This is an 82-year-old male who was in his normal state of health until October 13, 2022. At that time, he tripped on a step stool, experiencing a fall. As result of his fall, the patient sought medical attention in the emergency department at an [facility]. He was diagnosed with a hairline left radial wrist fracture, and was placed in a volar splint. He was found to have an open wound of the right pretibial area, and a large laceration on the right lateral calf. Laceration on the right lateral calf was sutured closed with 9 sutures. Sutures removed on October 26, 2022, following which the laceration dehisced. The patient presented with an open wound on the right pretibial surface and on the right lateral calf. It is noted that the patient has been treated with a course of oral doxycycline. He has been using Bactroban topically to each of the wounds. He suffers from chronic swelling and edema in his lower extremities. He has profound hyperpigmentation and lipodermatosclerosis in the gaiter areas bilaterally. He sleeps in a chair, and is not very active. He spends a great deal of each day idle and sitting. [facility] Medical History (Updated 01/02/23 @ 09:[address] 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 Obesity (BMI 30.0-34.9) Swelling of both lower extremities Wound dehiscence Home Medications atorvastatin 40 mg tablet 40 mg PO DAILY 11/07/22 [History Last Taken Unknown] cholecalciferol (vitamin D3) 10 mcg (400 unit) capsule (Vitamin D3) 20 mcg PO DAILY 11/07/22 [History Last Taken Unknown] etodolac 400 mg tablet 400 mg PO Q8H PRN Inflammation 11/07/22 [History Last Taken Unknown] furosemide 40 mg tablet 40 mg PO DAILY 11/07/22 [History Last Taken Unknown] leucovorin calcium 15 mg tablet 15 mg PO QWEEK 11/07/22 [History Last Taken Unknown] metoprolol succinate 50 mg tablet,extended release 24 hr (Toprol XL) 75 mg PO DAILY 11/07/22 [History Last Taken Unknown] prednisone 10 mg tablet 10 mg PO PRN PRN poison shavon 11/07/22 [History Last Taken Unknown] triamcinolone 0.1 % topical ointment and dimethicone 5 % topical cream 0.1 ea topical 11/07/22 [History Last Taken Unknown] warfarin 7.5 mg tablet 7.5 mg PO DAILY 11/07/22 [History Last Taken Unknown] tamsulosin PO 01/02/23 [History Last Taken 01/02/23] Allergy/AdvReac Type Severity Reaction Status Date / Time Sulfa (Sulfonamide Allergy Swelling Verified 11/07/22 08:47 Antibiotics) Social History Smoking Status: Never smoker Vital Signs Vital Signs Vital Signs: 01/02/23 08:55 01/02/23 00:11 Temperature 96.3 F L 96.6 F L Temperature Source Temporal Pulse Rate 78 79 Respiratory Rate 18 16 Blood Pressure 116/74 128/76 H Blood Pressure Mean 88 93 Blood Pressure Source Monitor Blood Pressure Position Sitting Blood Pressure Location Left Arm Left Forearm Oxygen Delivery Method Room Air Weight Weight: 250 lb Body Mass Index (BMI) 33.9 Physical Exam Const alert, oriented x3, no apparent distress and well nourished Constitutional Narrative: The patient is mildly obese. General Appearance: cooperative, comfortable, well kempt and well developed Orientation / Consciousness: awake, oriented to person, oriented to place and oriented to time HEENT normocephalic and head/scalp atraumatic Head and Scalp: normal to inspection, normocephalic and atraumatic Face and Sinus: normal facial exam External Ear: external ears normal Eyes PERRL and EOMs intact bilaterally General Eye: normal appearance of both eyes Neck full ROM Resp normal respiratory effort, normal air movement, no retractions and no use of accessory muscles Effort and Inspection: able to speak in complete sentences Extremity no calf tenderness General Extremity: Negative for clubbing or cyanosis Skin Wound Narrative: There has been improvement in the swelling and edema in the patient's lower extremities bilaterally. Severe, pronounced hyperpigmentation and lipodermatosclerosis is noted bilaterally in the gaiter areas. An open wound is noted on the right pretibial area, which continues to diminish in size. A dehiscent laceration is noted on the right lateral calf, which also is diminishing in size. Each of the 2 wounds has decreased in size since the patient's last visit. At each site, there is a small amount of bioburden and nonviable tissue. There is no obvious sign of infection or cellulitis. Dimensions of each wound are noted elsewhere. There is an increase in the amount of pink, healthy granulation tissue at each site. Neuro oriented x3, CN's II-XII intact bilaterally, moves all extremities and no focal motor deficits Sensorium / Orientation: awake, alert, oriented to person, oriented to place and oriented to time Psych Appearance: grossly normal and appropriate Attitude: calm Activity / Motor Behavior: appropriate eye contact Speech: normal speech Mood & Affect: euthymic mood Thought Process: normal thought process Thought Content: normal thought content Attention / Concentration: attention grossly intact Debridement Note Debridement Note Wound debrided: Pretibial area, right lower extremity Laterality: Right Type of Debridement: Excisional debridement Anesthesia Used: 5% Lidocaine Gel Depth: Down to and including healthy tissue and in the subcutaneous layer Percentage of wound debrided: 100 Instrument Used: 3mm curette Tissue Removed: Bioburden and nonviable tissue Severity: Fat Layer Exposed Amount of bleeding with debridement: Mild Bleeding Controlled with: Compression and gauze Patient tolerated procedure: Patient tolerated procedure well Post-Debridement Measurements and Additional Note: Post-Debridement Measurements/Treatment - Nurse 1 - General Ulcer Assessment Start: 01/02/23 08:55 Freq: Status: Active Protocol: NAS Activity Type Activity Date Activity User E-sign Co-sign Detail Recorded Client Recorded Date Recorded By Document 01/02/23 08:55 [id number] 01/02/23 09:02 KW 01/02/23 08:55 - Today's Visit Information Type of service Follow-up Visit (Physician/[facility] ) Arrival Mode Ambulatory Accompanied by Patient Identification Verified (Name & Yes ) Height and Weight Body Mass Index (BMI) 33.9 BMI Classification Obese Vital Signs Temperature (97.8 F-99.1 F) 96.3 F L Temperature Source Temporal Pulse Rate (60-100) 78 Pulse Location Monitor Respiratory Rate (12-18) 18 Respiratory rate source Observation Oxygen Delivery Method Room Air Blood Pressure (90/60-120/80) 116/74 Blood Pressure Mean 88 Source Monitor Position Sitting Blood Pressure Location Left Arm History Since Last Visit- (Skip if this is Patient's initial visit) Have you changed medications since your Yes last visit? Any new allergies or adverse reactions No Had a fall/change in ADL's that may No increase risk of falls Signs or symptoms of abuse and/or No neglect since last visit Have you been in the hospital since your No last visit? Has dressing in place as prescribed Yes Has compression in place as prescribed Yes Has offloadiing in place as prescribed No Left Footwear Regular Shoe Right Footwear Regular Shoe Pain Scale: 0-10 Numeric Is Patient Pain Free? Yes WC - Nurse 1 - General Ulcer Measurement Start: 01/02/23 08:55 Freq: Status: Active Protocol: Activity Type Activity Date Activity User E-sign Co-sign Detail Recorded Client Recorded Date Recorded By Document 01/02/23 08:55 [id number] 01/02/23 09:02 KW 01/02/23 08:55 Wound Center Nurse 1 #2 right lateral LE -Current Size (cm) - Length 0.1 -Current Size (cm) - Width 0.1 -Current Size (cm) - Depth 0.1 -Total Square Cm 0.01 -Date of Last Picture (Recall this 01/02/23 field) -Photo Taken Yes -Epithelialization Small 1-33% -Texture (Yelena-wound Skin Appearance) Assessed -Moisture (Yelena-wound Skin Appearance) Assessed -Color (Yelena-wound Skin Appearance) Assessed -Temperature (Yelena-wound Skin No Abnormality Appearance) (Pt Warm) -Tenderness on Palpation (Yelena-wound No Skin Appearance) -Ulcer Cleansing Rinsed/ Irrigated with Saline -Anesthetic Used 5% Lidocaine Gel Right Calf (cm) 44.1 Right Ankle (cm) 27.5 Additional Wound Wound debrided: Right lateral calf, dehiscent laceration Laterality: Right Type of Debridement: Excisional debridement Anesthesia Used: 5% Lidocaine Gel Depth: Down to and including healthy tissue and in the subcutaneous layer Percentage of wound debrided: 100 Instrument Used: 3mm curette Tissue Removed: Bioburden and nonviable tissue Severity: Fat Layer Exposed Amount of bleeding with debridement: Mild Bleeding Controlled with: Compression and gauze Patient tolerated procedure: Patient tolerated procedure well Assessment/Plan Assessment/Plan (1) Non-pressure chronic ulcer of right calf with fat layer exposed: CODE(S): L97.212 - Non-pressure chronic ulcer of right calf with fat layer exposed (2) Leg wound, right: CODE(S): S81.801A - Unspecified open wound, right lower leg, initial encounter QUALIFIERS: Encounter type: subsequent encounter Qualified Code(s): S81.801D - Unspecified open wound, right lower leg, subsequent encounter (3) Laceration of right leg excluding thigh: CODE(S): S81.811A - Laceration without foreign body, right lower leg, initial encounter QUALIFIERS: Encounter type: subsequent encounter Qualified Code(s): S81.811D - Laceration without foreign body, right lower leg, subsequent encounter (4) Wound dehiscence: CODE(S): T81.30XA - Disruption of wound, unspecified, initial encounter (5) History of prostate cancer: CODE(S): Z85.46 - Personal history of malignant neoplasm of prostate (6) Hypertension: CODE(S): I10 - Essential (primary) hypertension (7) Hyperlipidemia: CODE(S): E78.5 - Hyperlipidemia, unspecified (8) Atrial fibrillation: CODE(S): I48.91 - Unspecified atrial fibrillation (9) Hyperpigmentation: CODE(S): L81.9 - Disorder of pigmentation, unspecified (10) Lipodermatosclerosis of both lower extremities: CODE(S): I83.11 - Varicose veins of right lower extremity with inflammation; I83.12 - Varicose veins of left lower extremity with inflammation (11) Swelling of both lower extremities: CODE(S): M79.89 - Other specified soft tissue disorders (12) Edema of both legs: CODE(S): R60.0 - Localized edema (13) Obesity (BMI 30.0-34.9): CODE(S): E66.9 - Obesity, unspecified (14) Fracture of left wrist: CODE(S): S62.102A - Fracture of unspecified carpal bone, left wrist, initial encounter for closed fracture PLAN: Plan This is an 82-year-old male who presented with traumatic wounds which occurred on October 13, 2022. He was initially treated in an emergency room setting. Suture closure was performed relative to a laceration on the right lateral calf. Following removal of his sutures, approximately 2 weeks following his injury, the laceration dehisced. The patient presented with 2 wounds in the right lower extremity related to his recent traumatic injury. The patient is seen to have chronic swelling and edema in both lower extremities, with hyperpigmentation and lipodermatosclerosis in the gaiter areas bilaterally. He is not very active, and sleeps in a chair at night. A lengthy discussion has been undertaken with the patient and his . Leg elevation has been encouraged, and a lengthy discussion has been undertaken as to the means by which this can be accomplished. The patient is to elevate his legs to heart level, or higher, is much as possible. He has been encouraged to sleep on a flat surface at night. He has been encouraged to elevate his lower extremities as much as possible during daytime hours. Prolonged idle sitting has been discouraged. Activity has been encouraged, though the degree to which the patient can enhance his activity is question. Weight loss has been recommended. We are to continue compression to the lower extremities by means of Tubigrip's, equivalent to 20 to 30 mmHg compression. The patient's is to assist him in donning the compression garments. They have had difficulty in the past in donning graduated compression stockings. Long-term management may entail the use of CircAid Velcro compression garments. Optimizing the patient's nutritional intake has been encouraged. Collagenase Santyl was prescribed at the patient's initial visit, but the patient failed to obtain the product due to its high expense. Even with a coupon, the cost was $300, beyond the patient's ability to purchase. Therefore, we implemented the use of Dakin's?moistened gauze. More recently, we had been using Promogran topically on a daily basis. At this juncture, we are to continue the use of collagen hydrogel topically to each of the 2 right lower extremity wounds. The collagen hydrogel is to be applied on a daily basis. The patient and his have been instructed in the appropriate means of application. A noninvasive lower extremity arterial study has been performed, revealing no evidence of significant arterial occlusive disease. The patient has been provided a prescription for graduated compression stockings. Due to difficulties in donning stockings in the past, he has been provided a prescription for graduated compression stockings of 10 to 15 mmHg compression, and is to don a dual pair of the stockings each day, to provide a total of 20 to 30 mmHg compression to each lower extremity. This technique should assist the patient and his in donning the stockings each day. The patient is to return in 2 weeks for reassessment. Long-term control of the patient's lower extremity swelling, edema, and lipodermatosclerosis has been emphasized. Total time: 24 minutes
== END 2023-02-01 23:59 | disposition home or self-care (01) ==
LOC: WC 08:50
PROVIDERS: PCP Family Medicine; Referring Provider Nurse Practitioner Family; Visit Provider Surgery
DX: T81.33XA Disruption of traumatic injury wound repair, initial encounter (principal); L97.212 Non-pressure chronic ulcer of right calf with fat layer exposed; I48.91 Unspecified atrial fibrillation; R60.0 Localized edema; I10 Essential (primary) hypertension; E78.5 Hyperlipidemia, unspecified; S81.811S Laceration without foreign body, right lower leg, sequela; I83.11 Varicose veins of right lower extremity with inflammation; I83.12 Varicose veins of left lower extremity with inflammation; M79.89 Other specified soft tissue disorders; E66.9 Obesity, unspecified; Z79.01 Long term (current) use of anticoagulants; Z79.899 Other long term (current) drug therapy; Z85.46 Personal history of malignant neoplasm of prostate
CPT/HCPCS: 11042